=== PATIENT | male | born 1950 | race Caucasian/White ===

== ENCOUNTER 2019-02-11 12:29 | Outpatient (REF) | payer MEDICARE, BC, SELFPAY ==
[2019-02-11 21:18] LABS: ALT 22 U/L (16-63); AST 18 U/L (15-37); Albumin 3.8 g/dL (3.4-5.0); Alkaline Phosphatase 163 U/L (46-116); BUN 12 mg/dL (7-18); Bilirubin, Total 0.4 mg/dL (0.2-1.0); CREATININE 1.14 mg/dL (0.70-1.30); Calcium 8.9 mg/dL (8.5-10.1); Chloride 105 mmol/L (98-107); Glucose 108 mg/dL (70-100); Potassium 4.7 mmol/L (3.5-5.1); Sodium 141 mmol/L (136-145); Total Protein 6.7 g/dL (6.4-8.2)
[2019-02-13 09:56] LABS: PSA, Screening 0.7 ng/ml (0-4.5)
== END 2019-02-11 12:49 ==
LOC: NCHCN 12:29
PROVIDERS: PCP Family Medicine; Visit Provider Family Medicine
DX: Z00.00 Encounter for general adult medical examination without abnormal findings (principal); I10 Essential (primary) hypertension; N40.0 Benign prostatic hyperplasia without lower urinary tract symptoms; Z12.5 Encounter for screening for malignant neoplasm of prostate
CPT/HCPCS: 80053; 84153

== ENCOUNTER 2019-05-21 13:34 | Outpatient (REF) | payer MEDICARE, BC, SELFPAY ==
[2019-05-21 22:38] LABS: Abs Immature Grans 0.02 k/cumm (0.0-0.09); Absolute Basophil Count 0.13 k/cumm (0.0-0.2); Absolute Eosinophil Count 0.44 k/cumm (0.0-0.7); Absolute Lymphocyte Count 1.61 k/cumm (1.2-3.4); Absolute Monocyte Count 0.86 k/cumm (0.11-0.7); Absolute Neutrophil Count 5.29 k/cumm (1.2-6.7); Basophils % 1.6; Eosinophils % 5.3; HCT 49.3 % (40.0-50.0); HGB 16.2 g/dL (13.5-17.5); Immature Grans % 0.2 %; Lymphocytes % 19.3; Mean Corp. HGB Concentration 32.9 g/dL (32.0-36.0); Mean Corpuscular Volume 88.4 fL (80-95); Mean Platelet Volume 9.6 fL (8.0-11.0); Monocytes % 10.3; Neutrophils % 63.3; Platelet Count 335 x1000/uL (130-400); RBC 5.58 m/cumm (4.50-6.00); RBC Distribution Width 13.9 % (11.8-14.1); White Blood Cell Count 8.35 k/cumm (4.4-10.8)
[2019-05-21 23:14] LABS: ALT 23 U/L (16-63); AST 25 U/L (15-37); Albumin 3.7 g/dL (3.4-5.0); Alkaline Phosphatase 166 U/L (46-116); Anion Gap 9.3 mmol/L (3-11); BUN 10 mg/dL (7-18); Bilirubin, Total 0.4 mg/dL (0.2-1.0); CO2 26.7 mmol/L (21.0-32.0); CREATININE 0.98 mg/dL (0.70-1.30); Calculated LDL 98 mg/dL; Chloride 105 mmol/L (98-107); Cholesterol 171 mg/dL (<200); Glucose 86 mg/dL (74-106); HDL Cholesterol 60 mg/dL (40-60); Potassium 4.5 mmol/L (3.5-5.1); Sodium 141 mmol/L (136-145); Total Protein 6.6 g/dL (6.4-8.2); Triglyceride 68 mg/dL (<150)
== END 2019-05-21 13:54 ==
LOC: NCHCN 13:34
PROVIDERS: PCP Family Medicine; Visit Provider Physician Assistant Medical
DX: E78.5 Hyperlipidemia, unspecified (principal)
CPT/HCPCS: 80053; 80061; 85025

== ENCOUNTER 2019-05-27 09:02 | Outpatient (CLI) | payer MEDICARE, BC, SELFPAY ==
[2019-05-27 13:09] LABS: Prothrombin Time 10.4 sec (9.3-11.0)
== END 2019-05-27 09:22 ==
PROVIDERS: PCP Family Medicine; Visit Provider Physician Assistant Medical
DX: Z01.818 Encounter for other preprocedural examination (principal); Z98.890 Other specified postprocedural states
CPT/HCPCS: 36415; 85610

== ENCOUNTER 2019-10-07 12:08 | Outpatient (REF) | payer MEDICARE, BC, SELFPAY ==
[2019-10-07 19:31] LABS: HCT 50.1 % (40.0-50.0); HGB 16.7 g/dL (13.5-17.5); Mean Corp. HGB Concentration 33.3 g/dL (32.0-36.0); Mean Corpuscular Hemoglobin 28.8 pg (27.0-33.0); Mean Corpuscular Volume 86.5 fL (80-95); Mean Platelet Volume 9.5 fL (8.0-11.0); Platelet Count 321 x1000/uL (130-400); RBC 5.79 m/cumm (4.50-6.00); RBC Distribution Width 14.5 % (11.8-14.1); White Blood Cell Count 9.09 k/cumm (4.4-10.8)
[2019-10-07 19:46] LABS: Anion Gap 4.4 mmol/L (3-11); BUN 11 mg/dL (7-18); CO2 29.6 mmol/L (21.0-32.0); CREATININE 0.88 mg/dL (0.70-1.30); Calcium 8.9 mg/dL (8.5-10.1); Chloride 104 mmol/L (98-107); Glucose 94 mg/dL (74-106); Potassium 4.6 mmol/L (3.5-5.1); Sodium 138 mmol/L (136-145); TSH (W/Ref FT4) 0.86 uIU/mL (0.36-3.74); Vitamin B12 640 pg/mL (193-986)
== END 2019-10-07 12:28 ==
LOC: NCHCN 12:08
PROVIDERS: PCP Family Medicine; Visit Provider Family Medicine
DX: R53.83 Other fatigue (principal)
CPT/HCPCS: 80048; 85027; 82607; 84443

== ENCOUNTER 2020-10-04 12:33 | Emergency (ER) | payer MEDICARE, BC, SELFPAY ==
--- NOTE | 2020-10-04 12:44 | ED.GENADUL_ITS ---
Discharge Plan Disposition Patient Disposition: HOME Condition: Stable Discharge Details Clinical Impression: Acute exacerbation of chronic low back pain Primary Care Provider: Cathie Sue V ED Provider: Citlaly Terrazas Home Meds and New Rx's Prescriptions: New prednisone 20 mg tablet See Rx Instructions .ROUTE .COMPLEX Qty: 18 RF: 0 methocarbamol 500 mg tablet 500 mg PO Q6H PRN (Reason: muscle spasm) Qty: 14 RF: 0 Continued bupropion HCl [Wellbutrin SR] 150 MG tablet extended release 12 hr 150 mg PO BID RF: 0 trazodone 50 MG tablet 50 mg PO HS RF: 0 cetirizine [Zyrtec] 10 MG tablet 10 mg PO DAILY RF: 0 sertraline 50 MG tablet 50 mg PO BID RF: 0 simvastatin 40 MG tablet 40 mg PO HS RF: 0 fluticasone propionate 16 GM spray,suspension 2 spr IN DAILY RF: 0 aspirin [Aspir-81] 81 MG tablet,delayed release (DR/EC) 81 mg PO DAILY RF: 0 nitroglycerin [Nitrostat] 0.4 MG tablet, sublingual 0.4 mg PO DIRECTED PRNRF: 0 hydrocodone-acetaminophen 1 TAB tablet 1 tab PO Q6H PRN (Reason: Pain) Qty: 12 RF: 0 Discharge Instructions Instructions: Low Back Strain (ED) Additional Instructions: Alternate ice and heat to the affected area(s) several times daily for 20 minutes at a time. Alternate tylenol and motrin as needed and directed for pain. Take the oxycodone that you have at home as needed and directed for pain. Your prescriptions have been sent electronically to your pharmacy. Call the pharmacy to make sure your prescriptions ready before pickup. Take the prescriptions as directed. Call your primary care doctor to schedule follow-up appointment for reevaluation in the next week and for referral to orthopedics or spine specialists for further evaluation of your back pain. Return immediately to the emergency department if you develop any worsening or new concerning symptoms. Discharge Data Discharge Date/Time-TO BE ENTERED AT DEPARTURE: 10/04/20 16:05 Discharge Physician: Citlaly Terrazas Medical Decision Making [id number] -- 70-year-old male with a history of arthritis, coronary artery disease, hypertension, hyperlipidemia, tremors for which she has a brain stimulator for the past 5 years, history of lumbar fusion x2 with acute on chronic back pain presents with worsening back pain after pulling a trailer last week now with pain that radiates into both legs with numbness and weakness. Denies any other cauda equina symptoms. Vitals within normal limits. Patient appears uncomfortable but nontoxic. He is afebrile. Surgical scar site appears well-healed. No signs of cellulitis. Muscle strength equal bilaterally. Distal pulses equal bilaterally. Reflexes hypoactive throughout. No spasticity. History and presentation does not appear consistent with epidural abscess or cauda equina syndrome. MRI contraindicated secondary to his brain neurostimulator. Will give a dose of oxycodone, Valium, prednisone and reassess. He took diclofenac just prior to arrival. Will obtain a CT lumbar spine to rule out acute process. 1400 -- Imaging reviewed and notes IMPRESSION: 1. Status post fusion and laminectomy with vertically linked pedicle screws at L2 through S1 as described above. 2. Spondylosis and degenerative disc disease at T11-12, T12-L1, and L1-L2. 3. Simple cysts of the left kidney. 4. Large amount of retained stool within the colon. 5. Atherosclerosis. Patient reassessed and he states he feels much better. Patient appears more comfortable and has improved mobility. Patient feels good to go home. Will treat with oral steroids and methocarbamol. He states he has plenty of his oxycodone at home. Advised to follow up with the primary care doctor for re-evaluation and for referral to orthopedics or spine as disc herniation may be a possible diagnoses. Discussed with patient that MRI of lumbar spine is gold standard for diagnosing disc herniation and CT imaging may miss this finding. Usual and customary return precautions given prior to discharge. Medical Records Medical records reviewed: Yes I reviewed the patient's medical records. Imaging Data Radiologic Study: Radiologist's impression: CT Lumbar Spine Without Contrast Exam date and time: 10/04/2020 1:30 PM Age: 70 years old Clinical indication: Other: Lower back pain, b/l leg weak/numb; Prior surgery; Surgery date: 6+ months TECHNIQUE: Imaging protocol: Computed tomography images of the lumbar spine without contrast. Radiation optimization: All CT scans at this facility use at least one of these dose optimization techniques: automated exposure control; mA and/or kV adjustment per patient size (includes targeted exams where dose is matched to clinical indication); or iterative reconstruction. COMPARISON: LUMBAR SPINE RECONSTRUCTIONS 10/21/2017 2:20 PM FINDINGS: Vertebrae: No evidence of acute vertebral body fracture or subluxation. The patient is status post fusion with vertically linked pedicle screws at L2, L3, L4, L5, and S1. Laminectomy changes are also present at these levels. Bony fusion of vertebral bodies is seen at L3-L4, L4-L5, and L5-S1. In Discs/Spinal canal/Neural foramina: Spondylosis and degenerative disc disease with vacuum disc phenomenon is noted at T11-12, T12-L1, and L1-L2. No significant bony spinal canal or neural foraminal stenosis is noted. Kidneys and ureters: Small simple cysts of the left kidney are slightly noted. The largest cyst measures 2.0 cm in diameter. Stomach and bowel: There is a large amount of retained stool noted within the colon. Vasculature: Vascular calcifications are present. Soft tissues: Unremarkable. IMPRESSION: 1. Status post fusion and laminectomy with vertically linked pedicle screws at L2 through S1 as described above. 2. Spondylosis and degenerative disc disease at T11-12, T12-L1, and L1-L2. 3. Simple cysts of the left kidney. 4. Large amount of retained stool within the colon. 5. Atherosclerosis. HPI General Mode of arrival: ambulatory . Date/Time Provider Initiated Documentation: 10/04/20 12:44 . Limitations to Documentation: no limitations . Information obtained by: patient . HPI Narrative: Patient is a 70-year-old male with a history of chronic back pain with lumbar fusion x2 in addition to a history of tremors for which he has had a brain neurostimulator in place over the last 5 years presents for acute worsening of his back pain after pulling his tractor a few weeks ago. Patient states he has chronic lower back pain but since working on his tractor and sustaining an injury with pulling on the machine, he has had worsening lower back pain and now with pain radiating to both legs and associated with bilateral weakness and numbness. He denies fever, bowel or bladder incontinence, saddle anesthesia, abdominal pain or urinary symptoms. He states he took a dose of oxycodone and diclofenac today without relief. He states he had been on oxycodone chronically on a regular basis but this was stopped 3 months ago and he only takes it as needed for his chronic back pain. Related Data Home Medications Medication Instructions Recorded Confirmed aspirin [Aspir-81] 81 mg PO DAILY 05/06/17 05/31/21 bupropion HCl [Wellbutrin SR] 150 mg PO BID 09/09/16 10/04/20 cetirizine [Zyrtec] 10 mg PO DAILY 09/09/16 10/04/20 fluticasone propionate 2 spr IN DAILY 09/09/16 10/04/20 nitroglycerin [Nitrostat] 0.4 mg PO DIRECTED PRN 09/09/16 10/04/20 sertraline 50 mg PO BID 09/09/16 10/04/20 simvastatin 40 mg PO HS 09/09/16 10/04/20 trazodone 50 mg PO HS 09/09/16 10/04/20 hydrocodone-acetaminophen 1 tab PO Q6H PRN #12 tab 10/21/17 10/04/20 methocarbamol 500 mg PO Q6H PRN #14 tab 10/04/20 prednisone See Rx Instructions .ROUTE 10/04/20 .COMPLEX #18 tab Previous Rx's Medication Instructions Recorded hydrocodone-acetaminophen 1 tab PO Q6H PRN #12 tab 10/21/17 methocarbamol 500 mg PO Q6H PRN #14 tab 10/04/20 prednisone See Rx Instructions .ROUTE 10/04/20 .COMPLEX #18 tab Allergies Allergy/AdvReac Type Severity Reaction Status Date / Time seasonal AdvReac Mild watery Uncoded 10/04/20 13:42 eyes / runny nose Review of Systems All systems reviewed & are unremarkable except as noted in HPI and below Constitutional Constitutional: Reports as per HPI, Denies chills and Denies fever(s) Eyes Eyes: Denies blurry vision ENT Ears, Nose, Mouth, and Throat: Denies dizziness, Denies sore throat and Denies throat swelling Cardiovascular Cardiovascular: Denies chest pain and Denies dyspnea Respiratory Respiratory: Denies cough and Denies dyspnea Gastrointestinal Gastrointestinal: Denies abdominal pain, Denies diarrhea and Denies vomiting Genitourinary Genitourinary: Denies hematuria and Denies dysuria Musculoskeletal Musculoskeletal: Reports back pain and Denies numbness Integumentary/Breasts Skin/Breast: Denies lesions and Denies rash Neurologic Neurologic: Denies dizziness, Denies localized weakness and Denies numbness Allergic/Immunologic Allergic/Immunologic: Denies throat swelling PFSH Medical History (Updated 10/04/20 @ 15:39 by Citlaly Terarzas DO) Coronary artery disease High cholesterol HTN (hypertension) Social History Smoking/Tobacco Use Status: Current every day Smoking risk assessment performed?: Yes Alcohol Intake: current Alcohol Intake frequency: holidays/special occasions only Substance use type: does not use Do you feel safe at home: Yes Do you feel safe in your relationship?: Yes Exam Const General: cooperative, uncomfortable and no acute distress Orientation: alert, awake and oriented x3 HENMT Head: normal to inspection Face and sinus: normal facial exam Eyes General: appearance normal, both eyes and all related structures EOM: EOM intact bilaterally Neck Neck: normal visual inspection and No submandibular swelling Lymphatic: no lymphadenopathy noted Chest Chest: normal inspection of the chest and no tenderness Resp Effort & Inspection: normal respiratory effort and able to speak in complete sentences Auscultation: clear to auscultation bilaterally Cardio Rate: regular rate Rhythm: regular rhythm GI Inspection: normal to inspection Palpation: soft, not firm, not rigid and nontender Auscultation: normal bowel sounds Back/Spine/Pelvis Thoracic/Lumbar Spine: surgical scar(s) present, paraspinal tenderness and lumbar spinal tenderness Skin General skin exam: no rashes or lesions noted Neuro General: patient alert, patient awake, patient oriented x3, moves all extremities, no meningeal signs and no focal motor deficits Cognition: normal cognition Speech: speech normal Motor: muscle tone normal throughout and strength 5/5 throughout Sensory Exam: no sensory deficits noted DTR's: Rt Patellar: 0, Lt Patellar: 0, Rt Ankle: 1+ and Lt Ankle: 1+ Plantar Reflexes: Equivocal: bilateral (negative babinski b/l ) Other: B/L DP/PT pulses intact Extrem General: normal to inspection, full ROM, capillary refill normal, no calf tenderness bilaterally and no edema Psych Appearance: grossly normal Mental Status: mental status grossly normal Speech and Movement: speech and movement normal Affect: normal affect
[2020-10-04 12:46] VITALS: BP 154/90; PULSE 83; RESP 16; TEMP 36.5; O2SAT 96
--- NOTE | 2020-10-04 13:15 | DI.CT_ITS ---
Exam(s) CT LUMBAR SPINE WO EXAM: CT LUMBAR SPINE WO CLINICAL HISTORY: lower back pain, b/l leg weak/numb. TECHNIQUE: Imaging Protocol: Axial computed tomography images with coronal and sagittal reformatted images were created and reviewed COMPARISON: CT LUMBAR SPINE RECONSTRUCTIONS from 10/21/2017 CT THORACIC SPINE RECONSTRUCTIONS from 10/21/2017 FINDINGS: The patient is status post lumbar fusion with disc fusion from L3-4 through L5-S1. The patient is st atus post laminectomy from L2 through S1. Pedicle screws and posterior rods are seen extending from L2 through S1. Degenerative changes are seen in the lower thoracic spine in the upper lumbar spine. There is artifact from the patient's orthopedic hardware. Bones: The last intervertebral disc space is designated the L5/S1 level for the numbering purpose of this examination. The vertebral body heights are well maintained. There is a mild left convex curvat ure of the lumbar spine. No fracture is seen. No significant central spinal canal or neural foramina l stenosis is present. Soft Tissues: The visualized SI joints and sacrum are will maintained. The paraspinal soft tissues a re unremarkable. There again seen left renal cysts. IMPRESSION: 1. Status post lumbar fusion and laminectomies. 2. Degenerative changes seen in the lower thoracic and upper lumbar spine. 3. No acute fracture or subluxation. RADIATION DOSE DELIVERED: 613.01mGy.cm Total DLP 613.01mGy.cm Total DLP DATA REPOSITORY: All CT scans at this facility are submitted to the National Radiology Data Registry (NRDR) Dose Index Registry (DIR) with the [employer] (A[employer]). RADIATION OPTIMIZATION: All CT scans at this facility use at least one of these dose optimization te chniques: automated exposure control; mA and/or kV adjustment per patient size (includes targeted exa ms where dose is matched to clinical indication); or iterative reconstruction.
[2020-10-04] MEDS: diazePAM 5 MG TAB PO (13:37)
[2020-10-04] MEDS: oxyCODONE 10 MG TAB PO (13:37)
[2020-10-04] MEDS: predniSONE 20 MG TAB 60 MG PO (13:38)
--- NOTE | 2020-10-04 15:02 | DI.VRAD_ITS ---
PROCEDURE INFORMATION: Exam: CT Lumbar Spine Without Contrast Exam date and time: 10/04/2020 1:30 PM Age: 70 years old Clinical indication: Other: Lower back pain, b/l leg weak/numb; Prior surgery; Surgery date: 6+ months TECHNIQUE: Imaging protocol: Computed tomography images of the lumbar spine without contrast. Radiation optimization: All CT scans at this facility use at least one of these dose optimization techniques: automated exposure control; mA and/or kV adjustment per patient size (includes targeted exams where dose is matched to clinical indication); or iterative reconstruction. COMPARISON: LUMBAR SPINE RECONSTRUCTIONS 10/21/2017 2:20 PM FINDINGS: Vertebrae: No evidence of acute vertebral body fracture or subluxation. The patient is status post fusion with vertically linked pedicle screws at L2, L3, L4, L5, and S1. Laminectomy changes are also present at these levels. Bony fusion of vertebral bodies is seen at L3-L4, L4-L5, and L5-S1. In Discs/Spinal canal/Neural foramina: Spondylosis and degenerative disc disease with vacuum disc phenomenon is noted at T11-12, T12-L1, and L1-L2. No significant bony spinal canal or neural foraminal stenosis is noted. Kidneys and ureters: Small simple cysts of the left kidney are slightly noted. The largest cyst measures 2.0 cm in diameter. Stomach and bowel: There is a large amount of retained stool noted within the colon. Vasculature: Vascular calcifications are present. Soft tissues: Unremarkable. IMPRESSION: 1. Status post fusion and laminectomy with vertically linked pedicle screws at L2 through S1 as described above. 2. Spondylosis and degenerative disc disease at T11-12, T12-L1, and L1-L2. 3. Simple cysts of the left kidney. 4. Large amount of retained stool within the colon. 5. Atherosclerosis. Dictated and Authenticated by: Abhi Villarreal MD. Ordering:NANCY Boucher MD
[2020-10-04] MEDS: Methocarbamol 500 MG TAB 1000 MG PO (16:01)
== END 2020-10-04 16:05 | disposition home or self-care (01) ==
PROVIDERS: Emergency Provider Physician Assistant; PCP Family Medicine
DX: M54.5 Low back pain (principal); G89.29 Other chronic pain; X50.9XXA Other and unspecified overexertion or strenuous movements or postures, initial encounter
CPT/HCPCS: 99284; 72131; J7512

== ENCOUNTER 2020-11-25 13:59 | Outpatient (REF) | payer MEDICARE, BC, SELFPAY ==
[2020-11-25 18:55] LABS: HCT 50.9 % (40.0-50.0); HGB 16.5 g/dL (13.5-17.5); MCH 29.4 pg (27.0-33.0); MCHC 32.4 % (32.0-36.0); MCV 90.6 fL (80-95); Platelet Count 382 10^3/uL (130-400); RBC 5.62 10^6/uL (4.36-5.78); RDW 13.9 % (11.8-14.1); RDW-SD 46.7 fL; WBC 11.98 10^3/uL (4.4-10.8)
[2020-11-25 19:28] LABS: Hemoglobin A1C 5.9 % (<5.7)
[2020-11-25 19:30] LABS: ALT 58 U/L (16-63); AST 29 U/L (15-37); Albumin 3.9 g/dL (3.4-5.0); Alkaline Phosphatase 160 U/L (46-116); Anion Gap 9.3 mmol/L (3-11); BUN 15 mg/dL (7-18); Bilirubin, Total 0.3 mg/dL (0.2-1.0); CO2 27.7 mmol/L (21.0-32.0); CREATININE 0.9 mg/dL (0.70-1.30); Calcium 9.1 mg/dL (8.5-10.1); Chloride 105 mmol/L (98-107); Glucose 96 mg/dL (74-106); Magnesium 2.6 mg/dL (1.8-2.4); Potassium 4.6 mmol/L (3.5-5.1); Sodium 142 mmol/L (136-145); Total Protein 6.6 g/dL (6.4-8.2)
== END 2020-11-25 14:00 | disposition home or self-care (01) ==
LOC: NCHCN 13:59
PROVIDERS: PCP Family Medicine; Visit Provider Family Medicine
DX: Z01.818 Encounter for other preprocedural examination (principal); E78.5 Hyperlipidemia, unspecified; I10 Essential (primary) hypertension; R20.2 Paresthesia of skin
CPT/HCPCS: 80053; 85027; 83036; 83735; 84443

== ENCOUNTER 2020-11-30 09:31 | Outpatient (REF) | payer MEDICARE, BC, SELFPAY ==
[2020-11-30 19:56] LABS: Abs Immature Grans 0.06 10^3/uL (0.0-0.06); Absolute Basophil Count 0.14 10^3/uL (0.0-0.2); Absolute Eosinophil Count 0.38 10^3/uL (0.0-0.7); Absolute Lymphocyte Count 1.75 10^3/uL (1.2-3.4); Absolute Monocyte Count 0.93 10^3/uL (0.1-0.8); Absolute Neutrophil Count 9.82 10^3/uL (1.2-6.7); Basophils % 1.1; Eosinophils % 2.9; HCT 51.7 % (40.0-50.0); HGB 16.8 g/dL (13.5-17.5); Immature Grans % 0.5; Lymphocytes % 13.4; MCH 29.2 pg (27.0-33.0); MCHC 32.5 % (32.0-36.0); MCV 89.9 fL (80-95); MPV 8.9 fL (8.0-11.0); Monocytes % 7.1; Nucleated RBC 0 %; Platelet Count 369 10^3/uL (130-400); RBC 5.75 10^6/uL (4.36-5.78); RDW 13.7 % (11.8-14.1); RDW-SD 45.6 fL; WBC 13.09 10^3/uL (4.4-10.8)
== END 2020-11-30 09:32 | disposition home or self-care (01) ==
LOC: NCHCN 09:31
PROVIDERS: PCP Family Medicine; Visit Provider Family Medicine
DX: Z00.00 Encounter for general adult medical examination without abnormal findings (principal)
CPT/HCPCS: 85025

== ENCOUNTER 2021-03-06 15:19 | Emergency (ER) | payer MEDICARE, BC, SELFPAY ==
[2021-03-06 15:23] VITALS: BP 166/97; PULSE 99; RESP 18; TEMP 36.4; O2SAT 96
--- NOTE | 2021-03-06 15:30 | DI.CT_ITS ---
Exam(s) CT ABDOMEN PELVIS W EXAM: CT ABDOMEN PELVIS W CLINICAL HISTORY: rlq pain, eval for kidney stone/appe. TECHNIQUE: Imaging Protocol: Axial computed tomography images with coronal and sagittal reformatted images were created and reviewed CONTRAST MATERIAL: Intravenous: Omnipaque 100cc Oral: None COMPARISON: CT scan October 2017 FINDINGS: VISUALIZED LUNG BASES: No nodules nor pleural effusions evident. Mild increased markings in the post erior basal segment right lower lobe are chronic and unchanged from 2018. ABDOMEN: There is no ascites. LIVER: There are no focal hepatic lesions evident . GALLBLADDER/BILIARY: No obvious gallbladder pathology. CBD is not dilated. PANCREAS: No evidence of pancreatic mass nor dilatation of the pancreatic duct. SPLEEN: Spleen is not enlarged. No obvious intrasplenic lesions. Splenic and portal veins are paten t. ADRENALS: There are no significant adrenal masses. KIDNEYS:Benign cysts in both kidneys are again noted. No solid renal masses. No calculi. No hydron ephrosis. No hydroureter. No obvious abnormality in the urinary bladder.. ABDOMINAL AORTA: Abdominal aorta is calcified. Upper normal diameter. LYMPH NODES:There is no retroperitoneal nor paraaortic adenopathy. ABDOMINAL WALL: No evidence of significant anterior abdominal wall nor inguinal hernia. GI: Abundant fecal material in the colon but no evidence of bowel obstruction, free air, nor abscess. PELVIS: GI: Appendix not identified. No indirect evidence of acute appendicitisno evidence of sigmoid divert iculitis. LYMPH NODES: There is no intrapelvic nor inguinal adenopathy. REPRODUCTIVE: Prostate size upper normal URINARY BLADDER: No calculi nor obvious masses evident OSSEOUS: Multilevel fusion surgery again noted. Multilevel laminectomies. Surgeries have involve le vels T10 down to L4. The previously present intrapedicular screws in L5 and S1 have been removed and the hardware presently terminates at the L4 level where there is a unilateral right screw evident. The L5 vertebral body is fractured and, representing significant change. The screw channels at S1 le yoandy are noted but without significant osseous abnormality S1 level. There is an unchanged position i ntervertebral disc space device at L5-S1. IMPRESSION: 1. No acute soft tissue findings in the abdomen and pelvis. No ascites. 2. Compared to October 2017 there has been revision of the multilevel back surgery with removal of hardw are at L5 and S1 levels. There is presently posterior fusion and multilevel laminectomies of T10 thr ough L4. The posterior mike on the left side extends from T10 to L 3. The posterior mike on the right side extends from T10 to L4 where it is secured by a single right-sided intra pedicular screw which is in satisfactory position. There is an ununited fracture through L5 along the course of the previo usly present intra pedicular screws, also involving the pedicles. Posterior cortex of L5 is approxim ately 9 millimeters posterior to the posterior cortex of L4 on the right side. There is no tight can al stenosis. 3. Benign-appearing cysts in both kidneys are again noted. The largest is in the inferior pole of th e left kidney and measures 3.5 by 3.2 cm. There are no solid renal masses, calculi, or hydronephrosi s. 4. RADIATION DOSE DELIVERED: 550.98mGy.cm Total DLP DATA REPOSITORY: All CT scans at this facility are submitted to the National Radiology Data Registry (NRDR) Dose Index Registry (DIR) with the [employer] (ACR). RADIATION OPTIMIZATION: All CT scans at this facility use at least one of these dose optimization te chniques: automated exposure control; mA and/or kV adjustment per patient size (includes targeted exa ms where dose is matched to clinical indication); or iterative reconstruction.
[2021-03-06] MEDS: Normal Saline 1,000 ML 1000 ML IV (15:56)
[2021-03-06 15:58] LABS: Abs Immature Grans 0.03 10^3/uL (0.0-0.06); Absolute Basophil Count 0.12 10^3/uL (0.0-0.2); Absolute Monocyte Count 1.11 10^3/uL (0.1-0.8); Absolute Neutrophil Count 7.14 10^3/uL (1.2-6.7); Basophils % 1.2; Eosinophils % 1.9; HCT 43.1 % (40.0-50.0); Immature Grans % 0.3; Lymphocytes % 17.3; MCH 23.6 pg (27.0-33.0); MCHC 30.2 % (32.0-36.0); MCV 78.1 fL (80-95); MPV 8.4 fL (8.0-11.0); Monocytes % 10.7; Neutrophils % 68.6; Nucleated RBC 0 %; Platelet Count 505 10^3/uL (130-400); RBC 5.52 10^6/uL (4.36-5.78); RDW 14.9 % (11.8-14.1); RDW-SD 42.1 fL
[2021-03-06 15:59] LABS: ALT 35 U/L (16-63); AST 26 U/L (15-37); Albumin 4.3 g/dL (3.4-5.0); Alkaline Phosphatase 251 U/L (46-116); Anion Gap 9.8 mmol/L (3-11); BUN 9 mg/dL (7-18); Bilirubin, Total 0.3 mg/dL (0.2-1.0); CO2 28.2 mmol/L (21.0-32.0); CREATININE 0.8 mg/dL (0.70-1.30); Calcium 9.2 mg/dL (8.5-10.1); Chloride 103 mmol/L (98-107); Glucose 114 mg/dL (74-106); Potassium 4.1 mmol/L (3.5-5.1); Sodium 141 mmol/L (136-145); Total Protein 8.1 g/dL (6.4-8.2)
[2021-03-06] MEDS: Ondansetron 4 MG/2 ML VIAL IVP (16:13)
[2021-03-06 16:39] VITALS: BP 153/87; PULSE 92; RESP 16; TEMP 36.8; O2SAT 95
[2021-03-06] MEDS: Normal Saline - Diluent 50 ML VIAL IV (17:00)
--- NOTE | 2021-03-06 17:17 | DI.VRAD_ITS ---
PROCEDURE INFORMATION: Exam: CT Abdomen And Pelvis With Contrast Exam date and time: 03/06/2021 3:41 PM Age: 71 years old Clinical indication: Other: Rlq pain, eval for kidney stone/appe; Prior surgery; Surgery date: 6+ months TECHNIQUE: Imaging protocol: Computed tomography of the abdomen and pelvis with contrast. Contrast material: OMNIPAQUE 350; Contrast volume: 100 ml; Contrast route: INTRAVENOUS (IV); COMPARISON: CT CHEST ABD PELVIS WITH CONTRAST 10/21/2017 2:20 PM FINDINGS: Lungs: Minimal ground-glass change right lung base. Liver: Normal. No mass. Gallbladder and bile ducts: The gallbladder is partially contracted. Pancreas: Normal. No ductal dilation. Spleen: Normal. No splenomegaly. Adrenal glands: Normal. No mass. Kidneys and ureters: There are bilateral renal cysts. Renal perfusion symmetric. No hydronephrosis or hydroureter. Stomach and bowel: Unremarkable. No obstruction. No mucosal thickening. Appendix: The appendix is not definitely identified. There are no secondary signs for acute appendicitis. Intraperitoneal space: Unremarkable. No free air. No significant fluid collection. Vasculature: Moderate atherosclerotic change present in the vasculature. Lymph nodes: Unremarkable. No enlarged lymph nodes. Urinary bladder: Unremarkable as visualized. Reproductive: The scrotum is not completely imaged however it appears the patient may be status post left orchiectomy. Bones/joints: There is significant compression deformity at L5 with anterior fusion L4-L5. There is posterior fusion T10-L4 with multilevel laminectomy change. There appears to be an ununited nonacute fracture through L5 as well as the posterior elements, possible pseudarthrosis. Soft tissues: Unremarkable. Other findings: Moderate fecal retention pattern. IMPRESSION: Postsurgical changes. No definite acute abnormality seen to account for symptoms. Dictated and Authenticated by: Shefali Mehta MD. Ordering:IVAN Case MD
--- NOTE | 2021-03-06 17:20 | ED.GENADUL_ITS ---
Discharge Plan Disposition Patient Disposition: HOME Condition: Good Discharge Details Clinical Impression: Acute right flank pain Primary Care Provider: Cathie Sue V ED Provider: Manpreet Zepeda Home Meds and New Rx's Prescriptions: New lidocaine [Lidoderm] 1 PATCH patch 1 patch Topical Q24H Qty: 4 RF: 0 Continued bupropion HCl [Wellbutrin SR] 150 MG tablet extended release 12 hr 150 mg PO BID RF: 0 trazodone 50 MG tablet 50 mg PO HS RF: 0 cetirizine [Zyrtec] 10 MG tablet 10 mg PO DAILY RF: 0 sertraline 50 MG tablet 50 mg PO BID RF: 0 simvastatin 40 MG tablet 40 mg PO HS RF: 0 fluticasone propionate 16 GM spray,suspension 2 spr IN DAILY RF: 0 aspirin [Aspir-81] 81 MG tablet,delayed release (DR/EC) 81 mg PO DAILY RF: 0 nitroglycerin [Nitrostat] 0.4 MG tablet, sublingual 0.4 mg PO DIRECTED PRNRF: 0 methocarbamol 500 mg tablet 500 mg PO Q6H PRN (Reason: muscle spasm) Qty: 14 RF: 0 Discharge Instructions Instructions: Flank Pain (ED) Additional Instructions: At this time the CAT scan shows no evidence of kidney stone or other significant abnormality. I suspect the major component of your symptoms is contusion to your right ribs and subsequent spasm of the muscles. Please use the Lidoderm patches as needed. I will give you a prescription to take home and fill if you have improvement with the Lidoderm patch. You can use your Flexeril/cyclobenzaprine at home to help relax the muscles and to help sleep, alternatively you can use your home oxycodone for breakthrough pain if necessary. Continue to monitor your symptoms closely, and if you notice any significant changes return for reassessment. If you notice any worsening of your symptoms, or any new symptoms such as vomiting, diarrhea, fever, chills, shortness of breath, chest pain, numbness, weakness, or fainting , please return immediately to the emergency department for reevaluation. Please follow up with your primary care provider as soon as possible for reassessment and reevaluation. As always, it was a pleasure participating in your medical care today. Referrals: Cathie Sue MD [Primary Care Provider] - Discharge Data Discharge Date/Time-TO BE ENTERED AT DEPARTURE: 03/06/21 18:06 Medical Decision Making This 71-year-old male with a past medical history of notable thoracic and lumbar spine surgery this past summer, high cholesterol, coronary artery disease, hypertension, presents today for right flank pain. Patient states that over the last 2 days he was doing a significant amount of work with his family member putting in insulation, and he was on the ground leaning onto his right flank for an extended period of time. Since then he has had notable achiness and pain in the right flank going around towards the right side of his abdomen. He denies any numbness tingling or weakness. He denies any trauma. He does admit to nausea but denies vomiting. He denies any genital pain or discomfort. He denies any urinary complaints. He has no history of kidney stones. No other complaints this time. No other modifying factors. Physical exam demonstrates no abdominal tenderness, no significant flank or CVA tenderness. Genital exam unremarkable. Differential includes kidney stone, musculoskeletal spasm or strain, or mild contusion. No evidence of significant bruises noted though otherwise. We will get basic labs, urinalysis treat the patient's pain, monitor closely and reassess. 6:[address] scan shows no evidence of acute process per virtual radiology. Laboratory work-up is unremarkable. Hemoglobin minimally low, mild microcytic anemia. Electrolytes stable, renal function good, urinalysis negative for abnormality. On reassessment patient's pain is improved. No evidence of an acute surgical abdomen. This time patient feels stable for discharge. With no evidence of kidney stone, appendicitis or other life-threatening abnormality will give Lid oderm patch, and recommend that the patient uses home cyclobenzaprine or oxycodone if needed for pain. Discussed red flags which to return. Diagnosis is sinus at this time for contusion or musculoskeletal strain. I have extensively reviewed the treatment plan and discharge instructions with the patient and their family. I have addressed all patient concerns at this time. The patient and family was made aware of what symptoms to monitor for that would warrant a return to the emergency department. Discussed the plan with the patient and family, they demonstrate verbal understanding and agreement with our assessment and plan at this time. The documentation in this chart was dictated using Pythian dictation software. Please excuse any dictation errors. FINDINGS: Lungs: Minimal ground-glass change right lung base. Liver: Normal. No mass. Gallbladder and bile ducts: The gallbladder is partially contracted. Pancreas: Normal. No ductal dilation. Spleen: Normal. No splenomegaly. Adrenal glands: Normal. No mass. Kidneys and ureters: There are bilateral renal cysts. Renal perfusion symmetric. No hydronephrosis or hydroureter. Stomach and bowel: Unremarkable. No obstruction. No mucosal thickening. Appendix: The appendix is not definitely identified. There are no secondary signs for acute appendicitis. Intraperitoneal space: Unremarkable. No free air. No significant fluid collection. Vasculature: Moderate atherosclerotic change present in the vasculature. Lymph nodes: Unremarkable. No enlarged lymph nodes. Urinary bladder: Unremarkable as visualized. Reproductive: The scrotum is not completely imaged however it appears the patient may be status post left orchiectomy. Bones/joints: There is significant compression deformity at L5 with anterior fusion L4-L5. There is posterior fusion T10-L4 with multilevel laminectomy change. There appears to be an ununited nonacute fracture through L5 as well as the posterior elements, possible pseudarthrosis. Soft tissues: Unremarkable. Other findings: Moderate fecal retention pattern. IMPRESSION: Postsurgical changes. No definite acute abnormality seen to account for symptoms. Thank you for allowing us to participate in the care of your patient. Dictated and Authenticated by: Shefali Mehta MD 03/06/2021 5:16 PM Eastern Time ([place] & [place]) HPI General Date/Time Provider Initiated Documentation: 03/06/21 15:32 . HPI Narrative: This 71-year-old male with a past medical history of notable thoracic and lumbar spine surgery this past summer, high cholesterol, coronary artery disease, hypertension, presents today for right flank pain. Patient states that over the last 2 days he was doing a significant amount of work with his family member putting in insulation, and he was on the ground leaning onto his right flank for an extended period of time. Since then he has had notable achiness and pain in the right flank going around towards the right side of his abdomen. He denies any numbness tingling or weakness. He denies any trauma. He does admit to nausea but denies vomiting. He denies any genital pain or discomfort. He denies any urinary complaints. He has no history of kidney stones. No other complaints this time. No other modifying factors. Related Data Home Medications Medication Instructions Recorded Confirmed aspirin [Aspir-81] 81 mg PO DAILY 05/06/17 10/31/21 bupropion HCl [Wellbutrin SR] 150 mg PO BID 09/09/16 03/06/21 cetirizine [Zyrtec] 10 mg PO DAILY 09/09/16 10/04/20 fluticasone propionate 2 spr IN DAILY 09/09/16 10/04/20 nitroglycerin [Nitrostat] 0.4 mg PO DIRECTED PRN 09/09/16 10/04/20 sertraline 50 mg PO BID 09/09/16 03/06/21 simvastatin 40 mg PO HS 09/09/16 03/06/21 trazodone 50 mg PO HS 09/09/16 03/06/21 methocarbamol 500 mg PO Q6H PRN #14 tab 10/04/20 lidocaine [Lidoderm] 1 patch TOPICAL Q24H #4 ea 03/06/21 Previous Rx's Medication Instructions Recorded methocarbamol 500 mg PO Q6H PRN #14 tab 10/04/20 lidocaine [Lidoderm] 1 patch TOPICAL Q24H #4 ea 03/06/21 Allergies Allergy/AdvReac Type Severity Reaction Status Date / Time seasonal AdvReac Mild watery Uncoded 03/06/21 15:26 eyes / runny nose General Stated Complaint: FlankPain STEFANIA: 3 Review of Systems All systems reviewed & are unremarkable except as noted in HPI and below PFSH Medical History Coronary artery disease High cholesterol HTN (hypertension) Social History Smoking/Tobacco Use Status: Current every day Smoking risk assessment performed?: Yes Alcohol Intake: current Alcohol Intake frequency: holidays/special occasions only Substance use type: does not use Do you feel safe at home: Yes Do you feel safe in your relationship?: Yes Exam Narrative Exam Narrative: 1.Const: Well-nourished, Well-developed, appearing stated age 2.Eyes: PERRL, no conjunctival injection, and symmetrical lids. 3.ENT: Atraumatic external nose and ears. Moist MM. Neck: Symmetric, trachea midline, No thyromegaly. 4.CVS: +S1/S2, No murmurs or gallops. Peripheral pulses 2+ and equal in all extremities. Brisk capillary refill in all extremities. 5.RESP: Unlabored respiratory effort. Clear to auscultation bilaterally. No wheezes rales or rhonchi 6.GI: Soft, Nontender/Nondistended, No hepatosplenomegaly. No guarding or rebound. No pain to McBurney's point, negative Disla sign. No right-sided CVA tenderness. Genital exam demonstrates no scrotal or testicular tenderness, no penile tenderness. Normal cremasteric reflex. 7.MSK: Normocephalic/Atraumatic, Extremities w/o deformity or ttp No cyanosis or clubbing, Normal movement of all extremities 8.Skin: Warm, Dry. No rashes or lesions. Scar in the patient's spine is unremarkable, no redness or infection. 9.Neuro: ocular care technician II-XII grossly intact. Sensation grossly intact, no focal neurologic deficits. 10.Psych: (AAO) x3. Appropriate mood and affect Course Vital Signs Vital signs: Vital Signs Temperature 36.4 C L 03/06/21 15:23 Pulse 99 H 03/06/21 15:23 Respiratory Rate 18 03/06/21 15:23 Blood Pressure 166/97 H 03/06/21 15:23 Pulse Oximetry 96 03/06/21 15:23 Temperature 36.8 C 03/06/21 16:39 Temperature Source Oral 03/06/21 16:39 Pulse 92 H 03/06/21 16:39 Respiratory Rate 16 03/06/21 16:39 Respiratory Effort 03/06/21 16:40 Blood Pressure 153/87 H 03/06/21 16:39 Blood Pressure Position Sitting 03/06/21 15:23 Pulse Oximetry 95 03/06/21 16:39 Oxygen Delivery Method Room Air 03/06/21 16:39 Oxygen Flow Rate 0 03/06/21 16:39 Pain Level 6 03/06/21 16:13 Lab/Test Results Lab/Test Results: Laboratory Tests Range/Units 03/06/21 03/06/21 15:40 15:40 WBC (4.4-10.8) 10^3/uL 10.40 RBC (4.36-5.78) 10^6/uL 5.52 Hgb (13.5-17.5) g/dL 13.0 L Hct (40.0-50.0) % 43.1 MCV (80-95) fL 78.1 L MCH (27.0-33.0) pg 23.6 L MCHC (32.0-36.0) % 30.2 L RDW (11.8-14.1) % 14.9 H Plt Count (130-400) 10^3/uL 505 H MPV (8.0-11.0) fL 8.4 Immature Gran % 0.3 Neutrophils % 68.6 Lymphocytes % 17.3 Monocytes % 10.7 Eosinophils % 1.9 Basophils % 1.2 Nucleated RBC % % 0 Absolute Neutrophils (1.2-6.7) 10^3/uL 7.14 H Absolute Lymphocytes (1.2-3.4) 10^3/uL 1.80 Absolute Monocytes (0.1-0.8) 10^3/uL 1.11 H Absolute Eosinophils (0.0-0.7) 10^3/uL 0.20 Absolute Basophils (0.0-0.2) 10^3/uL 0.12 Sodium (136-145) mmol/L 141 Potassium (3.5-5.1) mmol/L 4.1 Chloride (98-107) mmol/L 103 Carbon Dioxide (21.0-32.0) mmol/L 28.2 Anion Gap (3-11) mmol/L 9.8 BUN (7-18) mg/dL 9 Creatinine (0.70-1.30) mg/dL 0.8 Estimated GFR/1.73 m2 (mL/min/1.73m2) >= 60.00 Glucose (74-106) mg/dL 114 H Calcium (8.5-10.1) mg/dL 9.2 Total Bilirubin (0.2-1.0) mg/dL 0.3 AST (15-37) U/L 26 ALT (16-63) U/L 35 Alkaline Phosphatase (46-116) U/L 251 H Total Protein (6.4-8.2) g/dL 8.1 Albumin (3.4-5.0) g/dL 4.3
[2021-03-06] MEDS: Lidocaine 5% Patch 1 PATCH TP (17:33)
[2021-03-06 17:42] LABS: Bilirubin Negative (Negative); Blood Negative (Negative); Clarity Clear (Clear); Glucose Negative (Negative); Ketones 15 mg/dL (Negative); Leukocyte Esterase Negative (Negative); Nitrite Negative (Negative); Specific Gravity 1.015 (1.005-1.025); Urobilinogen 0.2 EU/dL (Up TO 0.2)
[2021-03-06] MEDS: Ondansetron O.D.T. 4 MG TABEF, 3 TABS/BTL PO (18:04)
== END 2021-03-06 18:06 | disposition home or self-care (01) ==
PROVIDERS: Emergency Provider Student in an Organized Health Care Education/Training Program; PCP Family Medicine
DX: R10.9 Unspecified abdominal pain (principal); R11.0 Nausea
CPT/HCPCS: 80053; 96361; 96374; 96375; 99285; 74177; 81003; 85025; 99284; J2405

== ENCOUNTER 2021-03-18 09:29 | Outpatient (REF) | payer MEDICARE, BC, SELFPAY ==
[2021-03-18 14:37] LABS: HCT 40.4 % (40.0-50.0); MCH 23.2 pg (27.0-33.0); MCHC 29.7 % (32.0-36.0); MPV 8.9 fL (8.0-11.0); Platelet Count 546 10^3/uL (130-400); RBC 5.18 10^6/uL (4.36-5.78); RDW 15.9 % (11.8-14.1); RDW-SD 44.8 fL; WBC 10.63 10^3/uL (4.4-10.8)
[2021-03-18 15:49] LABS: Calculated LDL 94 mg/dL (<100); Cholesterol 172 mg/dL (<200); Ferritin 15 ng/mL (26-388); HDL Cholesterol 58 mg/dL (40-60); Triglyceride 101 mg/dL (<150)
[2021-03-18 22:45] LABS: PSA, Screening 0.9 ng/mL (0.0-6.5)
== END 2021-03-18 09:30 | disposition home or self-care (01) ==
LOC: NCHCN 09:29
PROVIDERS: PCP Family Medicine; Visit Provider Family Medicine
DX: E78.5 Hyperlipidemia, unspecified (principal); D64.9 Anemia, unspecified; Z00.00 Encounter for general adult medical examination without abnormal findings; Z12.5 Encounter for screening for malignant neoplasm of prostate
CPT/HCPCS: 80061; 84153; 85027; 82728

== ENCOUNTER 2021-09-29 10:41 | Outpatient (REF) | payer MEDICARE, BC, SELFPAY ==
[2021-09-29 15:03] LABS: Abs Immature Grans 0.06 10^3/uL (0.0-0.06); Absolute Basophil Count 0.16 10^3/uL (0.0-0.2); Absolute Eosinophil Count 0.67 10^3/uL (0.0-0.7); Absolute Lymphocyte Count 1.51 10^3/uL (1.2-3.4); Absolute Monocyte Count 0.74 10^3/uL (0.1-0.8); Absolute Neutrophil Count 6.08 10^3/uL (1.2-6.7); Basophils % 1.7; Eosinophils % 7.3; HGB 17.2 g/dL (13.5-17.5); Immature Grans % 0.7; Lymphocytes % 16.4; MCH 29.6 pg (27.0-33.0); MCHC 32.5 % (32.0-36.0); MCV 91 fL (80-95); MPV 8.7 fL (8.0-11.0); Neutrophils % 65.9; Platelet Count 318 10^3/uL (130-400); RBC 5.81 10^6/uL (4.36-5.78); RDW 13.8 % (11.8-14.1); RDW-SD 46.6 fL; WBC 9.22 10^3/uL (4.4-10.8)
[2021-09-29 15:26] LABS: ALT 31 U/L (16-63); AST 17 U/L (15-37); Albumin 3.9 g/dL (3.4-5.0); Alkaline Phosphatase 185 U/L (46-116); Anion Gap 5.4 mmol/L (3-11); BUN 15 mg/dL (7-18); Bilirubin, Total 0.3 mg/dL (0.2-1.0); CO2 31.6 mmol/L (21.0-32.0); Calcium 9.2 mg/dL (8.5-10.1); Chloride 105 mmol/L (98-107); Ferritin 69 ng/mL (26-388); Glucose 95 mg/dL (74-106); Potassium 4.6 mmol/L (3.5-5.1); Sodium 142 mmol/L (136-145); Total Protein 6.7 g/dL (6.4-8.2)
== END 2021-09-29 10:42 | disposition home or self-care (01) ==
LOC: NCHCN 10:41
PROVIDERS: PCP Family Medicine; Visit Provider Family Medicine
DX: D47.3 Essential (hemorrhagic) thrombocythemia (principal); D64.9 Anemia, unspecified; I10 Essential (primary) hypertension; E78.5 Hyperlipidemia, unspecified; Z98.890 Other specified postprocedural states
CPT/HCPCS: 80053; 82728; 85025

== ENCOUNTER 2021-12-23 01:16 | Outpatient (CLI) | payer MEDICARE, BC, SELFPAY ==
[2021-12-23 13:02] LABS: Abs Immature Grans 0.08 10^3/uL (0.0-0.06); Absolute Basophil Count 0.11 10^3/uL (0.0-0.2); Absolute Eosinophil Count 0.44 10^3/uL (0.0-0.7); Absolute Monocyte Count 0.98 10^3/uL (0.1-0.8); Absolute Neutrophil Count 9.26 10^3/uL (1.2-6.7); Basophils % 0.9; Eosinophils % 3.5; HCT 55.2 % (40.0-50.0); HGB 18.4 g/dL (13.5-17.5); Immature Grans % 0.6; Lymphocytes % 12.6; MCH 29.5 pg (27.0-33.0); MCHC 33.3 % (32.0-36.0); MCV 89 fL (80-95); MPV 8.4 fL (8.0-11.0); Monocytes % 7.9; Neutrophils % 74.5; Platelet Count 320 10^3/uL (130-400); RBC 6.23 10^6/uL (4.36-5.78); RDW 13.4 % (11.8-14.1); RDW-SD 43.5 fL; WBC 12.43 10^3/uL (4.4-10.8)
[2021-12-23 13:04] LABS: Absolute Lymphocyte Count 1.57 10^3/uL (1.2-3.4)
[2021-12-23 13:13] LABS: Prothrombin Time 10.4 sec (9.3-11.0)
[2021-12-23 13:18] LABS: Diff Comment Diff Reviewed; RBC Morphology Normal
[2021-12-23 13:31] LABS: Anion Gap 8.1 mmol/L (3-11); BUN 12 mg/dL (7-18); CO2 29.9 mmol/L (21.0-32.0); CREATININE 0.8 mg/dL (0.70-1.30); Calcium 9.1 mg/dL (8.5-10.1); Chloride 104 mmol/L (98-107); Glucose 90 mg/dL (74-106); Potassium 4.1 mmol/L (3.5-5.1); Sodium 142 mmol/L (136-145)
== END 2021-12-23 01:17 | disposition home or self-care (01) ==
PROVIDERS: PCP Family Medicine
DX: G25.0 Essential tremor (principal); Z86.79 Personal history of other diseases of the circulatory system
CPT/HCPCS: 36415; 80048; 85025; 85610

== ENCOUNTER 2022-04-12 03:46 | Outpatient (CLI) | payer MEDICARE, BC, SELFPAY ==
[2022-04-12 12:31] LABS: Abs Immature Grans 0.06 10^3/uL (0.0-0.06); Absolute Eosinophil Count 0.71 10^3/uL (0.0-0.7); Absolute Lymphocyte Count 1.49 10^3/uL (1.2-3.4); Absolute Monocyte Count 0.92 10^3/uL (0.1-0.8); Basophils % 1.2; Eosinophils % 5.5; HCT 51.4 % (40.0-50.0); Immature Grans % 0.5; Lymphocytes % 11.5; MCH 29.3 pg (27.0-33.0); MCHC 33.1 % (32.0-36.0); MCV 89 fL (80-95); MPV 8.6 fL (8.0-11.0); Monocytes % 7.1; Neutrophils % 74.2; Platelet Count 304 10^3/uL (130-400); RDW 13.8 % (11.8-14.1); WBC 12.97 10^3/uL (4.4-10.8)
[2022-04-12 12:33] LABS: Absolute Basophil Count 0.16 10^3/uL (0.0-0.2); Absolute Neutrophil Count 9.62 10^3/uL (1.2-6.7)
[2022-04-12 12:35] LABS: ESR 10 mm/hr (0-20)
[2022-04-12 13:24] LABS: ALT 34 U/L (16-63); AST 22 U/L (15-37); Albumin 3.8 g/dL (3.4-5.0); Alkaline Phosphatase 167 U/L (46-116); Bilirubin, Direct 0.1 mg/dL (0.0-0.2); Bilirubin, Total 0.3 mg/dL (0.2-1.0); C-Reactive Protein 0.31 mg/dL (0.0-0.3); Creatine Kinase 81 U/L (39-308); Ferritin 33 ng/mL (26-388); Total Protein 7.3 g/dL (6.4-8.2)
[2022-04-13 14:58] LABS: Erythropoietin 8.8 mIU/mL (2.6 - 18.5)
[2022-04-14 13:50] LABS: JAK2 Result see interpretation
== END 2022-04-12 03:47 | disposition home or self-care (01) ==
LOC: LBO 03:46
PROVIDERS: PCP Family Medicine; Visit Provider Family Medicine
DX: D47.3 Essential (hemorrhagic) thrombocythemia (principal); D75.1 Secondary polycythemia; D72.829 Elevated white blood cell count, unspecified
CPT/HCPCS: 36415; 80076; 82550; 82668; 85652; 81270; 82728; 85025; 86140

== ENCOUNTER 2023-04-10 18:30 | Outpatient (REF) | payer MEDICARE, BC, SELFPAY ==
[2023-04-10 15:31] LABS: HCT 54.5 % (40.0-50.0); HGB 18.2 g/dL (13.5-17.5); MCH 29.3 pg (27.0-33.0); MCHC 33.4 % (32.0-36.0); MCV 88 fL (80-95); MPV 8.8 fL (8.0-11.0); Platelet Count 348 10^3/uL (130-400); RBC 6.22 10^6/uL (4.36-5.78); RDW 13.7 % (11.8-14.1); RDW-SD 43.5 fL
[2023-04-10 16:11] LABS: Hemoglobin A1C 5.5 % (<5.7)
[2023-04-10 16:12] LABS: ALT 31 U/L (16-63); AST 23 U/L (15-37); Albumin 3.8 g/dL (3.4-5.0); Alkaline Phosphatase 183 U/L (46-116); Anion Gap 7.1 mmol/L (3-11); BUN 12 mg/dL (7-18); Bilirubin, Total 0.5 mg/dL (0.2-1.0); CO2 28.9 mmol/L (21.0-32.0); Calcium 9.3 mg/dL (8.5-10.1); Chloride 104 mmol/L (98-107); Estimated GFR 79.97 (mL/min/1.73m2); Glucose 102 mg/dL (74-106); Potassium 4.7 mmol/L (3.5-5.1); Sodium 140 mmol/L (136-145); Total Protein 6.8 g/dL (6.4-8.2)
[2023-04-10 23:21] LABS: PSA, Screening 1.5 ng/mL (<=6.5)
== END 2023-04-10 18:31 | disposition home or self-care (01) ==
LOC: NCHCN 18:30
PROVIDERS: PCP Family Medicine; Visit Provider Family Medicine
DX: Z00.00 Encounter for general adult medical examination without abnormal findings (principal); D72.829 Elevated white blood cell count, unspecified; I10 Essential (primary) hypertension
CPT/HCPCS: 80053; 84153; 85027; 83036

== ENCOUNTER → 2023-05-24 10:29 | Outpatient (BNVA) | payer MEDICARE, BC, SELFPAY | PROVIDERS: PCP Family Medicine; Referring Provider Family Medicine; Visit Provider Student in an Organized Health Care Education/Training Program | DX: R19.5 Other fecal abnormalities (principal) | CPT/HCPCS: 99213 ==

== ENCOUNTER 2023-06-06 08:54 | Day surgery (SDC) | payer MEDICARE, BC, SELFPAY ==
[2023-06-05 11:40] VITALS: BP 123/86; PULSE 54; RESP 18; TEMP 36.6; O2SAT 97
[2023-06-06 09:20] VITALS: BP 143/91; PULSE 104; RESP 18; TEMP 36.4; O2SAT 96
[2023-06-06] MEDS: Lactated Ringers 1,000 ML 80 ML IV (09:23)
--- NOTE | 2023-06-06 09:24 | W.PM.DSUDISC ---
Date of service: 06/06/23 Time of Service: 10:30 Discharge Plan Disposition Patient Disposition: Home Condition: Good Discharge Details Attending Provider: Marco Sargent Primary Care Provider: Cathie Sue V Home Meds and New Rx's Prescriptions: No Action lorazepam 1 mg tablet 1 mg PO DAILY PRN magnesium 200 mg tablet 400 mg PO DAILY venlafaxine 150 mg capsule,extended release 24hr 150 mg PO DAILY diltiazem HCl [DILT-XR] 120 mg capsule,ext.rel 24h degradable 120 mg PO DAILY trazodone 50 mg tablet 150 mg PO HS cholecalciferol (vitamin D3) 25 mcg (1,000 unit) capsule 25 mcg PO DAILY vitamin E (dl, acetate) 180 mg (400 unit) capsule 180 mg PO DAILY bupropion HCl [Wellbutrin SR] 150 MG tablet extended release 12 hr 150 mg PO BID cetirizine [Zyrtec] 10 MG tablet 10 mg PO DAILY sertraline 50 MG tablet 50 mg PO BID simvastatin 40 MG tablet 40 mg PO HS fluticasone propionate 16 GM spray,suspension 2 spr IN DAILY nitroglycerin [Nitrostat] 0.4 MG tablet, sublingual 0.4 mg PO DIRECTED PRN Discharge Instructions Additional Instructions: FINDINGS: Stand Alone Forms: Anesthesia Discharge Inst., Colonoscopy Post Instructions, Roderick Bocanegra (DSU) Activity:: Activity as Tolerated Diet:: As Tolerated
--- NOTE | 2023-06-06 09:25 | W.COLOREPORT ---
Date of service: 06/06/23 Time of Service: 10:20 Colonoscopy Report Procedure Description: PROCEDURES PERFORMED: 1. Diagnostic colonoscopy with cold forceps polypectomy PREOPERATIVE DIAGNOSIS: Positive Cologuard POSTOPERATIVE DIAGNOSIS: Mild diverticular disease, colon polyp SURGEON: Yi Sargent MD INDICATION for procedure: The patient is a 73-year-old man who has no symptoms, had a normal colonoscopy 10 years ago and has no family history of colon cancer or colon polyps. He took a Cologuard test as an alternative and it came back positive warranting colonoscopy. FINDINGS: The terminal ileum was normal. A small polyp was found in the distal sigmoid colon which is probably the reason the Cologuard test was positive. The polyp was removed with cold forceps technique but unfortunately the tissue was lost. Visual confirmation that it had been completely removed was obtained but no tissue was recovered. Mild diverticular changes are present in the sigmoid and left?colons. No obvious hemorrhoid disease. SURVEILLANCE interval/FOLLOW-UP: Under the assumption the polyp was likely a small tubular adenoma, repeat colonoscopy in 7-10 years SPECIMENS: No(no tissue was recovered) EBL: Minimal COMPLICATIONS: None QUALITY of prep: Excellent Procedure in detail: The patient gave written consent and was in agreement with the indications, the potential risks as well as the benefits of the procedure. They taken to the endoscopy suite and laid in the left lateral decubitus position. A timeout was performed and anesthesia was administered which was tolerated well. I started the procedure. Digital rectal and visual examination was performed and grossly within normal limits. A well-lubricated flexible colonoscope was then introduced and passed without any notable difficulty all the way to the cecum identified by the ileocecal valve and the appendiceal orifice. The terminal ileum was briefly intubated and looked normal. The scope was then slowly withdrawn with the above-noted findings. The patient tolerated the procedure well and was taken to the PACU in hemodynamically stable condition.
--- NOTE | 2023-06-06 10:13 | W.ANESPRE ---
General Info Date of Service Date Performed: 06/06/23 Height: 5 ft 4 in Weight: 67.4 kg Body Mass Index (BMI): 25.4 Surgical Procedure: Operation Date: 06/06/23 10:35 Proposed Procedure Side Surgeon p Colonoscopy Marco Sargent MD Actual Procedure Side Surgeon p Colonoscopy Not Applicable Marco Sargent MD Meds Allergies and Home Medications Allergies Allergy/AdvReac Type Severity Reaction Status Date / Time hydromorphone [From Dilaudid] Allergy Severe Verified 06/06/23 09:18 gabapentin Allergy Intermediate Verified 06/06/23 09:18 lisinopril Allergy Mild Verified 06/06/23 09:18 seasonal AdvReac Mild watery Uncoded 06/06/23 09:18 eyes / runny nose Home Medication Medication Instructions Recorded bupropion HCl 150 mg tablet,12 hr 150 mg PO BID 09/09/16 sustained-release (Wellbutrin SR) cetirizine 10 mg tablet (Zyrtec) 10 mg PO DAILY 09/09/16 fluticasone propionate 50 2 spr IN DAILY 09/09/16 mcg/actuation nasal spray,suspension nitroglycerin 0.4 mg sublingual 0.4 mg PO DIRECTED PRN 09/09/16 tablet (Nitrostat) sertraline 50 mg tablet 50 mg PO BID 09/09/16 simvastatin 40 mg tablet 40 mg PO HS 09/09/16 diltiazem HCl 120 mg 120 mg PO DAILY 04/11/21 capsule,extended release 24 hr, controlled (DILT-XR) lorazepam 1 mg tablet 1 mg PO DAILY PRN 04/11/21 magnesium 200 mg tablet 400 mg PO DAILY 04/11/21 venlafaxine 150 mg 150 mg PO DAILY 04/11/21 capsule,extended release 24 hr cholecalciferol (vitamin D3) 25 25 mcg PO DAILY 05/15/23 mcg (1,000 unit) capsule trazodone 50 mg tablet 150 mg PO HS 05/15/23 vitamin E (dl, acetate) 180 mg 180 mg PO DAILY 05/15/23 (400 unit) capsule Current Visit Medications: Current Medications Generic Name Dose Route Start Last Admin Trade Name Freq PRN Reason Stop Dose Admin Ringer's Solution 1,000 mls @ 80 mls/hr 06/06/23 06:00 06/06/23 09:23 IV 07/05/23 23:59 80 mls/hr INFUSION MIGUEL Administration IV Miscellaneous Supplies 1 each 06/06/23 06:00 Iv Access IV 07/05/23 23:59 DIRECTED MIGUEL Sodium Chloride 0 ml 06/06/23 06:00 Normal Saline Flush 10 Ml Syr IV 07/05/23 23:59 PRN PRN Sodium Chloride 0 ml 06/06/23 06:00 Normal Saline 10 Ml Vial IJ 07/05/23 23:59 DIRECTED PRN Sterile Water 0 ml 06/06/23 06:00 Water,Injection,Sterile 10 Ml Vial IJ 07/05/23 23:59 DIRECTED PRN PFSH Active Problems Active Problems: Problem Status Onset Code Positive colorectal cancer screening using Cologuard test ~04/26/23 R19.5 Anemia D64.9 Acute exacerbation of chronic low back pain M54.5, G89.29 Acute right flank pain R10.9 Medical History Medical History Lumbosacral radiculopathy Rhinitis, chronic History of tobacco abuse Dyspnea Anxiety and depression BPH (benign prostatic hyperplasia) Generalized arthritis Erectile dysfunction Raynauds phenomenon Tremor, essential Unintentional weight loss Paresthesia of bilateral legs Fatigue Ataxia Dysphagia Peripheral neuropathy Insomnia Coronary artery disease High cholesterol HTN (hypertension) Surgical History Surgical History History of colonoscopy S/P deep brain stimulator placement Tobacco Smoking/Tobacco Use Status: Current every day Tobacco Type: cigars Alcohol Alcohol Intake: current Alcohol intake frequency: holidays/special occasions only Substance Use Substance use: Never Substance use type: does not use Vital Signs and Lab Results Vital Signs Most Recent Vital Signs in EMR: Most Recent Vital Signs Temp Pulse Resp BP Pulse Ox 36.4 C L 104 H 18 143/91 H 96 06/06/23 09:20 06/06/23 09:20 06/06/23 09:20 06/06/23 09:20 06/06/23 09:20 Lab Results Blood Type / Crossmatch: No Data to Display Complete Blood Count: No Data to Display Complete Metabolic Panel: No Data to Display Liver Function Panel: No Data to Display Coagulation Panel: No Data to Display Cardiac Panel: No Data to Display Arterial Blood Gas: No Data to Display Venous Blood Gas: No Data to Display Pancreas Panel: No Data to Display Thyroid Panel: No Data to Display Infectious Disease: No Data to Display Blood Cultures: No Data to Display Toxicology Panel: No Data to Display Anesthesia Assessment and Plan Anesthesia History Personal History: No History of Anesthesia Complications Family History: No Family History of Anesthesia Complications Exercise Tolerance Exercise Tolerance: Metabolic Equivalents>4 Pertinent Negatives Pertinent Negatives: No Symptoms of GERD and Other (Deep Brain Stimulator) Cardiac & Pulmonary Exam Cardiac Exam: Normal S1/S2 Heart Sounds Pulmonary Exam: Clear Bilateral Breath Sounds Implantable Cardiac Device Does patient have a Pacemaker or an ICD?: No Airway Exam Known Difficult Airway: No Mallampati Class: 2 Mouth Opening: Normal (> 3cm) Thyromental Distance: Greater than 3 cm Neck Range of Motion: Full ROM Neck Circumference: Normal Teeth Condition: Removable Dentures/Plates Upper and Removable Dentures/Plates Lower ASA Classification ASA Score: ASA 3 Emergency Case?: No NPO Status NPO Status: NPO Clears >2 hours, Solids >8 hours Anesthesia Plan Resuscitation Status: Full Code Anesthesia Technique: General Anesthesia Airway Planned: Endotracheal Tube Monitors Used: Standard Monitors
[2023-06-06 10:17] VITALS: BMI 25.4
[2023-06-06 11:08] VITALS: BP 136/84; PULSE 76; RESP 18; TEMP 36.4; O2SAT 96
[2023-06-06 11:18] VITALS: BP 130/103; PULSE 65; RESP 18; TEMP 36.4; O2SAT 97
[2023-06-06 11:33] VITALS: BP 138/82; PULSE 72; RESP 16; TEMP 36.4; O2SAT 97
--- NOTE | 2023-06-06 12:06 | W.PM.DSUDISC ---
Date of service: 06/06/23 Time of Service: 12:06 Discharge Plan Disposition Patient Disposition: Home Condition: Good Discharge Details Attending Provider: Marco Sargent Primary Care Provider: Cathie Sue V Home Meds and New Rx's Prescriptions: No Action lorazepam 1 mg tablet 1 mg PO DAILY PRN magnesium 200 mg tablet 400 mg PO DAILY venlafaxine 150 mg capsule,extended release 24hr 150 mg PO DAILY diltiazem HCl [DILT-XR] 120 mg capsule,ext.rel 24h degradable 120 mg PO DAILY trazodone 50 mg tablet 150 mg PO HS cholecalciferol (vitamin D3) 25 mcg (1,000 unit) capsule 25 mcg PO DAILY vitamin E (dl, acetate) 180 mg (400 unit) capsule 180 mg PO DAILY bupropion HCl [Wellbutrin SR] 150 MG tablet extended release 12 hr 150 mg PO BID cetirizine [Zyrtec] 10 MG tablet 10 mg PO DAILY sertraline 50 MG tablet 50 mg PO BID simvastatin 40 MG tablet 40 mg PO HS fluticasone propionate 16 GM spray,suspension 2 spr IN DAILY nitroglycerin [Nitrostat] 0.4 MG tablet, sublingual 0.4 mg PO DIRECTED PRN Discharge Instructions Additional Instructions: FINDINGS: A small polyp was found today. This may have been the reason that you are Cologuard test was positive. It is nothing to worry about we completely removed it. Mild diverticular changes were seen today. This is extremely common, benign and nothing needs to be done about it. Most likely you will need to repeat another colonoscopy in 7 to 10 years. Stand Alone Forms: Anesthesia Discharge Inst., Colonoscopy Post Instructions, Roderick Bocanegra (DSU) Activity:: Activity as Tolerated Diet:: As Tolerated
--- NOTE | 2023-06-06 13:24 | W.ANESPOSTOP ---
Postoperative Evaluation Date, Time and Location Date Performed: 06/06/23 Time Performed: 11:10 Patient Location: Day Surgery Unit Vital Signs Most Recent Imported Vital Signs: Most Recent Vital Signs Temp Pulse Resp BP Pulse Ox 36.4 C L 72 16 138/82 97 06/06/23 11:33 06/06/23 11:33 06/06/23 11:33 06/06/23 11:33 06/06/23 11:33 Pain Score Most Recent Pain Score: Most Recent Pain Score Pain Level 0 06/06/23 11:33 Assessment Mental Status: Awake (Alert & Oriented to Patient Baseline) Airway and Respiratory Function: Patent airway with normal (patient baseline) respiratory exam Cardiovascular Function: Hemodynamically Stable Hydration Status: Adequately Hydrated Nausea & Vomiting: No Nausea or Vomiting Pain: Pt. Denies Any Pain Peripheral Nerve Block: Patient did not receive a nerve block
== END 2023-06-06 12:13 | disposition home or self-care (01) ==
LOC: SUR 08:54
PROVIDERS: PCP Family Medicine; Visit Provider Student in an Organized Health Care Education/Training Program
PROC: 0DJD8ZZ Inspection of Lower Intestinal Tract, Via Natural or Artificial Opening Endoscopic (ICD-10-PCS; CPT 45378; principal; 2023-06-06 10:30)
DX: Z12.11 Encounter for screening for malignant neoplasm of colon (principal); K63.5 Polyp of colon; R19.5 Other fecal abnormalities; D64.9 Anemia, unspecified; K57.30 Diverticulosis of large intestine without perforation or abscess without bleeding
CPT/HCPCS: 45380; 00123; J2704

== ENCOUNTER 2024-04-15 09:18 | Outpatient (REF) | payer MEDICARE, BC, SELFPAY ==
[2024-04-15 14:57] LABS: HCT 53.9 % (40.0-50.0); HGB 17.9 g/dL (13.5-17.5); MCH 29.2 pg (27.0-33.0); MCHC 33.2 % (32.0-36.0); MCV 88 fL (80-95); MPV 8.8 fL (8.0-11.0); Platelet Count 317 10^3/uL (130-400); RBC 6.12 10^6/uL (4.36-5.78); RDW 13.7 % (11.8-14.1); RDW-SD 44.1 fL; WBC 9.89 10^3/uL (4.4-10.8)
[2024-04-15 15:36] LABS: ALT 29 U/L (16-63); AST 22 U/L (15-37); Albumin 3.8 g/dL (3.4-5.0); Alkaline Phosphatase 180 U/L (46-116); Anion Gap 8.1 mmol/L (3-11); BUN 17 mg/dL (7-18); CO2 29.9 mmol/L (21.0-32.0); Calcium 9.2 mg/dL (8.5-10.1); Chloride 108 mmol/L (98-107); Estimated GFR 79.47 (mL/min/1.73m2); Glucose 109 mg/dL (74-106); Potassium 4.1 mmol/L (3.5-5.1); Sodium 146 mmol/L (136-145); Total Protein 6.7 g/dL (6.4-8.2)
== END 2024-04-15 09:19 | disposition home or self-care (01) ==
LOC: NCHCN 09:18
PROVIDERS: PCP Family Medicine; Visit Provider Family Medicine
DX: Z00.00 Encounter for general adult medical examination without abnormal findings (principal)
CPT/HCPCS: 80053; 85027

== ENCOUNTER 2024-10-16 12:58 | Emergency (ER) | payer MEDICARE, BC, SELFPAY ==
[2024-10-16 13:01] VITALS: BP 141/85; PULSE 90; RESP 18; TEMP 36.7; O2SAT 96
--- NOTE | 2024-10-16 13:15 | DI.RAD_ITS ---
Exam(s) XR HAND LT COMPLETE EXAM: XR HAND LT COMPLETE CLINICAL HISTORY: puncture wound 3rd digit. TECHNIQUE: 2D digital imaging was performed. COMPARISON: No exams were available for comparison FINDINGS: 3 views No evidence of acute fracture nor dislocation or abnormal soft tissue calcifications. There is no gas in soft tissues. No radiopaque foreign bodies over the 3rd finger. There is a subcutaneous sub mm foreign body in the mid aspect of the thumb. There are mild-moderate degenerative changes in the in terphalangeal joints. There are no erosions. Also advanced degenerative changes at the 1st carpometacarpal joint and more proximally in the wrist at the articulation between the distal radius and lunate bones. There is also degenerative subarticular cysts at this level on the radial side of this art iculation. IMPRESSION: No significant findings in the region of the 3rd finger. Incidental note of a tiny radiopaque foreign body in the soft tissues of the thumb. No osteomyelitis. Degenerative changes in the wrist, as described above. DATA REPOSITORY: RADIATION DOSE DELIVERED:
[2024-10-16] MEDS: Cephalexin 500 MG CAP PO (13:33)
[2024-10-16 14:11] VITALS: BP 131/82; PULSE 82; TEMP 36.6; O2SAT 98
[2024-10-16 14:33] VITALS: BP 131/82; PULSE 82; RESP 18; TEMP 36.6; O2SAT 98
--- NOTE | 2024-10-16 15:53 | W.ED.GENAD ---
Discharge Plan Disposition Patient Disposition: Home Condition: Stable Discharge Details Clinical Impression: Puncture wound of hand Primary Care Provider: Catihe Sue V ED Provider: Rose Dos Santos Home Meds and New Rx's Prescriptions: New cephalexin 500 mg tablet 500 mg PO Q6H 7 Days Qty: 28 0RF Continued lorazepam 1 mg tablet 1 mg PO DAILY PRN magnesium 200 mg tablet 400 mg PO DAILY venlafaxine 150 mg capsule,extended release 24hr 150 mg PO DAILY diltiazem HCl [DILT-XR] 120 mg capsule,ext.rel 24h degradable 120 mg PO DAILY trazodone 50 mg tablet 150 mg PO HS cholecalciferol (vitamin D3) 25 mcg (1,000 unit) capsule 25 mcg PO DAILY vitamin E (dl, acetate) 180 mg (400 unit) capsule 180 mg PO DAILY bupropion HCl [Wellbutrin SR] 150 MG tablet extended release 12 hr 150 mg PO BID cetirizine [Zyrtec] 10 MG tablet 10 mg PO DAILY sertraline 50 MG tablet 50 mg PO BID simvastatin 40 MG tablet 40 mg PO HS fluticasone propionate 16 GM spray,suspension 2 spr IN DAILY nitroglycerin [Nitrostat] 0.4 MG tablet, sublingual 0.4 mg PO DIRECTED PRN Discharge Instructions Instructions: Taking care of cuts, scrapes, and puncture wounds Additional Instructions: take antibiotic daily yogurt daily while taking antibiotic wash with soap and water daily (you may leave this dressing on for 48 hours as long as it stays dry return with spreading redness, fever, worsening pain recheck with Dr Graf on Sunday Referrals: Cathie Sue MD [Primary Care Provider, Medicine] Discharge Data Discharge Date/Time-TO BE ENTERED AT DEPARTURE: 10/16/24 14:33 HPI General Date/Time Provider Initiated Documentation: 10/16/24 13:13. HPI Narrative: 74-year-old male presenting with wound to left hand which occurred yesterday. He had a puncture wound removed. It was worse today which is why he presents. He states tetanus is to date denies finger sensation change. Normal assessment. Related Data Home Medications ?Medication ?Instructions ?Recorded ?Confirmed bupropion HCl 150 mg tablet,12 hr 150 mg PO BID 09/09/16 10/16/24 sustained-release (Wellbutrin SR) cetirizine 10 mg tablet (Zyrtec) 10 mg PO DAILY 09/09/16 10/16/24 fluticasone propionate 50 2 spr IN DAILY 09/09/16 10/16/24 mcg/actuation nasal spray,suspension nitroglycerin 0.4 mg sublingual 0.4 mg PO DIRECTED PRN 09/09/16 10/16/24 tablet (Nitrostat) sertraline 50 mg tablet 50 mg PO BID 09/09/16 10/16/24 simvastatin 40 mg tablet 40 mg PO HS 09/09/16 10/16/24 diltiazem HCl 120 mg 120 mg PO DAILY 04/11/21 10/16/24 capsule,extended release 24 hr, controlled (DILT-XR) lorazepam 1 mg tablet 1 mg PO DAILY PRN 04/11/21 10/16/24 magnesium 200 mg tablet 400 mg PO DAILY 04/11/21 10/16/24 venlafaxine 150 mg 150 mg PO DAILY 04/11/21 10/16/24 capsule,extended release 24 hr cholecalciferol (vitamin D3) 25 25 mcg PO DAILY 05/15/23 10/16/24 mcg (1,000 unit) capsule trazodone 50 mg tablet 150 mg PO HS 05/15/23 10/16/24 vitamin E (dl, acetate) 180 mg 180 mg PO DAILY 05/15/23 10/16/24 (400 unit) capsule cephalexin 500 mg tablet 500 mg PO Q6H 7 days #28 tabs 10/16/24 Previous Rx's ?Medication ?Instructions ?Recorded cephalexin 500 mg tablet 500 mg PO Q6H 7 days #28 tabs 10/16/24 Allergies Allergy/AdvReac Type Severity Reaction Status Date / Time hydromorphone (From Dilaudid) Allergy Severe Agitation Verified 10/16/24 13:05 gabapentin Allergy Intermediate Agitation Verified 10/16/24 13:05 lisinopril Allergy Mild Agitation Verified 10/16/24 13:05 seasonal AdvReac Mild watery Uncoded 10/16/24 13:05 eyes / runny nose General Stated Complaint: Laceration STEFANIA: 4 Exam Narrative Exam Narrative: Alert and oriented male in no acute distress tremor at baseline, puncture wound noted to the dorsal aspect of his third digit over the MCP which extends to the palmar aspect of range of motion is intact mildly diminished sensation to the dorsal aspect, no evidence of secondary infection Course Vital Signs Vital signs: Vital Signs Temperature 36.7 C 10/16/24 13:01 Pulse 90 10/16/24 13:01 Respiratory Rate 18 10/16/24 13:01 Blood Pressure 141/85 H 10/16/24 13:01 Pulse Oximetry 96 10/16/24 13:01 Temperature 36.6 C 10/16/24 14:33 Temperature Source Tympanic 10/16/24 14:11 Pulse 82 10/16/24 14:33 Respiratory Rate 18 10/16/24 14:33 Blood Pressure 131/82 10/16/24 14:33 Blood Pressure Mean 98 10/16/24 14:11 Pulse Oximetry 98 10/16/24 14:33 Oxygen Delivery Method Room Air 10/16/24 14:11 Oxygen Flow Rate 0 10/16/24 14:11 Pain Level 3 10/16/24 14:11 Medical Decision Making Patient presenting with intermittent left hand, wound cleansed copiously x-ray per radiology interpretation and my review does not show evidence of acute abnormality Patient was placed on Keflex out of risk for infection and digit was immobilized and dressed recheck on Sunday with PCP recommended return precautions reviewed and patient expressed understanding PFSH All Active Problems (Updated 10/16/24 @ 14:16 by MONICA Flynn) Puncture wound of hand (Acute) Positive colorectal cancer screening using Cologuard test (Acute ~04/26/23) Anemia (Chronic) Acute exacerbation of chronic low back pain (Acute) Acute right flank pain (Acute) Medical History (Updated 10/16/24 @ 14:16 by MONICA Flynn) Lumbosacral radiculopathy Rhinitis, chronic History of tobacco abuse Dyspnea Anxiety and depression BPH (benign prostatic hyperplasia) Generalized arthritis Erectile dysfunction Raynauds phenomenon Tremor, essential Unintentional weight loss Paresthesia of bilateral legs Fatigue Ataxia Dysphagia Peripheral neuropathy Insomnia Coronary artery disease High cholesterol HTN (hypertension) Surgical History (Updated 06/11/23 @ 11:49 by Delmi Kim) History of colonoscopy (~05/2023) biopsies S/P deep brain stimulator placement Social History Smoking/Tobacco Use Status: Current every day Tobacco Type: cigars Smoking risk assessment performed?: Yes Alcohol Intake: current Alcohol Intake frequency: holidays/special occasions only Drug use: Never Substance use type: does not use Housing: house Additional Social history: Unable to assess privately
== END 2024-10-16 14:33 | disposition home or self-care (01) ==
PROVIDERS: Emergency Provider Physician Assistant; PCP Family Medicine
DX: S61.432A Puncture wound without foreign body of left hand, initial encounter (principal); X58.XXXA Exposure to other specified factors, initial encounter
CPT/HCPCS: 99283 ×2; 73130

== ENCOUNTER 2024-11-24 11:40 | Emergency (ER) | payer MEDICARE, BC, SELFPAY ==
[2024-11-24] VITALS (48 sets, daily range): BP systolic 140–206; BP diastolic 83–127; PULSE 79–100; RESP 12–30; TEMP 36.8; O2SAT 86–99
--- NOTE | 2024-11-24 11:45 | DI.RAD_ITS ---
Exam(s) XR PELVIS AP XR FEMUR RT EXAM: XR PELVIS AP and XR femur RT CLINICAL HISTORY: Right hip pain, fall. TECHNIQUE: 2D digital imaging was performed.Eight images were obtained. FINDINGS: BONES: There is an acute comminuted fracture of the right femoral neck. The fracture is impacted. No bony destructive lesion is seen. JOINTS: No dislocation present. No joint space narrowing is present. Note is made of a right total knee arthroplasty. SOFT TISSUE: Vascular calcifications are present. IMPRESSION: Acute comminuted impacted right femoral neck fracture. DATA REPOSITORY: RADIATION DOSE DELIVERED:
--- NOTE | 2024-11-24 12:00 | RT.EKG_ITS ---
APPROVED REPORT Exam: Resting ECG Reason for Exam: Trauma Patient Location: E HR:96 bpm ECG Measurements Heart Rate 96 AXIS PA 167 P 77 QRSd 89 QRS 51 QT 375 T 230 QTc 475 Conclusion Poor quality data, interpretation may be affected Sinus rhythm...normal P axis, V-rate 60- 99 Repol abnrm suggests ischemia, diffuse leads...ST-T neg, ant/lat/inf No Occlusion AK
--- NOTE | 2024-11-24 12:02 | ED.GENADUL_ITS ---
Discharge Plan Discharge Details Chief Complaint: Fall/Non TraumaCriteria Primary Care Provider: Cathie Sue V ED Provider: Leena Bean Home Meds and New Rx's Prescriptions: No Action lorazepam 1 mg tablet 1 mg PO DAILY PRN magnesium 200 mg tablet 400 mg PO DAILY venlafaxine 150 mg capsule,extended release 24hr 150 mg PO DAILY diltiazem HCl [DILT-XR] 120 mg capsule,ext.rel 24h degradable 120 mg PO DAILY trazodone 50 mg tablet 150 mg PO HS cholecalciferol (vitamin D3) 25 mcg (1,000 unit) capsule 25 mcg PO DAILY vitamin E (dl, acetate) 180 mg (400 unit) capsule 180 mg PO DAILY bupropion HCl [Wellbutrin SR] 150 MG tablet extended release 12 hr 150 mg PO BID cetirizine [Zyrtec] 10 MG tablet 10 mg PO DAILY sertraline 50 MG tablet 50 mg PO BID simvastatin 40 MG tablet 40 mg PO HS fluticasone propionate 16 GM spray,suspension 2 spr IN DAILY nitroglycerin [Nitrostat] 0.4 MG tablet, sublingual 0.4 mg PO DIRECTED PRN HPI General Mode of arrival: EMS . Date/Time Provider Initiated Documentation: 11/24/24 11:47 . Limitations to Documentation: no limitations . Information obtained by: EMS . HPI Narrative: 74-year-old male presents to the ER via EMS with a chief complaint of a fall off a step ladder onto the right side. Complaining of severe right hip pain. Denies hitting his head no loss of consciousness denies any C-spine T-spine or L-spine tenderness. Denies any abdominal pain. Does have a past medical history hypertension high cholesterol coronary artery disease dyspnea anxiety depression BPH. Does take diltiazem on a normal basis. Related Data Home Medications ?Medication ?Instructions ?Recorded ?Confirmed bupropion HCl 150 mg tablet,12 hr 150 mg PO BID 10/16/24 sustained-release (Wellbutrin SR) cetirizine 10 mg tablet (Zyrtec) 10 mg PO DAILY 10/16/24 fluticasone propionate 50 2 spr IN DAILY 09/09/1610/05 2/25 mcg/actuation nasal spray,suspension nitroglycerin 0.4 mg sublingual 0.4 mg PO DIRECTED PRN 09/09/16 10/16/24 tablet (Nitrostat) sertraline 50 mg tablet 50 mg PO BID 09/09/16 simvastatin 40 mg tablet 40 mg PO HS 09/09/16 5 diltiazem HCl 120 mg 120 mg PO DAILY 04/11/2104/30 capsule,extended release 24 hr, controlled (DILT-XR) lorazepam 1 mg tablet 1 mg PO DAILY PRN 04/11/21 0 10/16/24 magnesium 200 mg tablet 400 mg PO DAILY 04/11/2104/30 venlafaxine 150 mg 150 mg PO DAILY 04/11/2104/30 capsule,extended release 24 hr cholecalciferol (vitamin D3) 25 25 mcg PO DAILY 10/16/24 mcg (1,000 unit) capsule trazodone 50 mg tablet 150 mg PO HS 05/15/23 vitamin E (dl, acetate) 180 mg 180 mg PO DAILY 4 10/16/24 (400 unit) capsule Allergies Allergy/AdvReac Type Severity Reaction Status Date / Time hydromorphone (From Dilaudid) Allergy Severe Agitation Verified 10/16/24 13:05 gabapentin Allergy Intermediate Agitation Verified 10/16/24 13:05 lisinopril Allergy Mild Agitation Verified 10/16/24 13:05 seasonal AdvReac Mild watery Uncoded 10/16/24 13:05 eyes / runny nose General Stated Complaint: Fall/Non TraumaCriteria STEFANIA: 3 Review of Systems All systems reviewed & are unremarkable except as noted in HPI and below Constitutional Constitutional: Reports as per HPI and Denies headache(s) ENT Ears, Nose, Mouth, and Throat: Denies headache(s) Cardiovascular Cardiovascular: Denies chest pain, Denies syncope and Denies radiating jaw, neck or arm pain Gastrointestinal Gastrointestinal: Denies abdominal pain Musculoskeletal Musculoskeletal: Reports as per HPI, Denies back pain and Reports arthralgias Neurologic Neurologic: Reports as per HPI, Denies confusion, Denies syncope, Denies headache(s), Denies localized weakness and Denies memory loss Psychiatric Psychiatric: Denies confusion and Denies memory loss Exam Narrative Exam Narrative: General: Well Developed, Awake and Alert, conversant. Skin: Warm and Dry HEENT: Head: No palpable deformities, Normocephalic Eyes: Pupils PERRLA, EOM's intact. No periorbital eccymosis or step off Ears: Canal patent. Tympanic membranes are clear . No baptiste's sign, no hemptympanum. Nose/Face: Atraumatic. Facial bones nontender to palpation and stable with manipulation. Mouth/Throat: No intraoral trauma. Teeth and mandible are intact. Neck: No midline tenderness, no step off, no deformity to palpation of C-spine. Trachea midline. Chest: No surface trauma. Nontender without crepitus or deformity. Lungs clear to ausculatation bilaterally. Heart: RRR, no rubs, murmurs or gallop. Abdomen: No abrasions, ecchymosis, or surface trauma. Nondistended. Nontender to palpation no guarding, rebound, or rigidity. Pelvis: Right hip pain, and a flexed position. C, T, L-spine: No crepitus no step-off with palpation Extremities: no surface trauma. Sensation intact. Peripheral pulses intact and equal. Neuro: ANO x4, GCS 15, cranial nerves II through XII intact. Motor and sensory exam nonfocal. Reflexes are symmetric. Course Vital Signs Vital signs: Vital Signs Temperature 36.8 C 11/24/24 11:43 Pulse 88 11/24/24 11:43 Respiratory Rate 18 11/24/24 11:43 Blood Pressure 192/104 H 11/24/24 11:43 Pulse Oximetry 99 11/24/24 11:43 Temperature 36.8 C 11/24/24 11:43 Temperature Source Oral 11/24/24 11:43 Pulse 88 11/24/24 11:43 Respiratory Rate 18 11/24/24 11:43 Blood Pressure 192/104 H 11/24/24 11:43 Blood Pressure Position Sitting 11/24/24 11:43 Pulse Oximetry 99 11/24/24 11:43 Oxygen Delivery Method Room Air 11/24/24 11:43 Oxygen Flow Rate 0 11/24/24 11:43 Pain Level 4 11/24/24 11:53 Medical Decision Making 74-year-old male presents to the ER via EMS with a chief complaint of a fall off a step ladder onto the right side. Complaining of severe right hip pain. Denies hitting his head no loss of consciousness denies any C-spine T-spine or L-spine tenderness. Denies any abdominal pain. Does have a past medical history hypertension high cholesterol coronary artery disease dyspnea anxiety depression BPH. Does take diltiazem on a normal basis. Patient is alert and oriented x 4, no obvious deformity however patient is keeping his right leg in a flexed position. No external rotation. Trauma labs and x-rays ordered including chest x-ray and hip pelvis and femur x-ray. Morphine Zofran IV and labs EKG . Spoke with hospitalist Dr. Terrell and Dr. Tian who is on-call for orthopedic surgery and in clinic. Dr. Mejias states that he does not do hip replacements which is what the patient would need done and would need to be transferred. I did notify Dr. Terrell. With discussion with the patient family they would prefer to be close to this area if possible we will contact [facility] to see if they have orthopedic surgery available and are willing to accept the patient will also talk with [facility]. 1549: Spoke with Dahlia Larson with [facility] ortho, they do not have OR time for Emergent surgeries. 1551: Call made to [facility] [place] will have images pushed. They report that they are at capacity at this time but will call me back for availability of Ortho. Care is to be handed off to oncoming provider MONICA Beltran pending transfer for right hip fracture. Discussed patient case in details with him he verbalized understanding. Medical Records Medical records reviewed: Yes I reviewed the patient's medical records. Imaging Data Radiologic Study: Imaging: X-Ray Radiologist's impression: EXAM: XR CHEST 1V IN DI DEPT CLINICAL HISTORY: Trauma, Fall TECHNIQUE: 2D digital imaging was performed of the chest. One image was obtained. An AP view was obtained. COMPARISON: CR CHEST 2 VIEWS PA,LAT from 07/22/2012 FINDINGS: MEDIASTINUM: Normal. HEART: Normal. PULMONARY VASCULATURE: Normal. LUNGS: There are no focal consolidating infiltrates. PLEURAL SPACE: No pleural effusion or pneumothorax. BONE:Within normal limits for the patient's age. Posterior spinal rods are seen in the lower thoracic and lumbar spine. OTHER FINDINGS:There is a battery pack overlying the left chest wall. The leads are directed cephalad in the left neck. IMPRESSION: No acute pulmonary findings. Radiologic Study #2: Imaging: X-Ray Radiologist's impression: EXAM: XR PELVIS AP and XR femur RT CLINICAL HISTORY: Right hip pain, fall. TECHNIQUE: 2D digital imaging was performed.Eight images were obtained. COMPARISON: CR LEFT HIP COMPLETE & AP PELVIS from 07/02/2014 FINDINGS: BONES: There is an acute comminuted fracture of the right femoral neck. The fracture is impacted. No bony destructive lesion is seen. JOINTS: No dislocation present. No joint space narrowing is present. Note is made of a right total knee arthroplasty. SOFT TISSUE: Vascular calcifications are present. IMPRESSION: Acute comminuted impacted right femoral neck fracture. Lab Data Lab results reviewed: Yes I reviewed the patient's lab results. Labs: Laboratory Tests Range/Units 11/24/24 11/24/24 12:04 12:13 WBC (4.4-10.8) 10^3/uL 12.71 H RBC (4.36-5.78) 10^6/uL 5.97 H Hgb (13.5-17.5) g/dL 17.4 Hct (40.0-50.0) % 51.7 H MCV (80-95) fL 87 MCH (27.0-33.0) pg 29.1 MCHC (32.0-36.0) % 33.7 RDW (11.8-14.1) % 13.5 Plt Count (130-400) 10^3/uL 259 MPV (8.0-11.0) fL 8.3 Immature Gran % % 0.6 Neutrophils % % 82.4 Lymphocytes % % 8.2 Monocytes % % 6.5 Eosinophils % % 1.4 Basophils % % 0.9 Nucleated RBC % (0.0-0.3) % 0.0 Absolute Neutrophils (1.2-6.7) 10^3/uL 10.47 H Absolute Lymphocytes (1.2-3.4) 10^3/uL 1.04 L Absolute Monocytes (0.1-0.8) 10^3/uL 0.83 H Absolute Eosinophils (0.0-0.7) 10^3/uL 0.18 Absolute Basophils (0.0-0.2) 10^3/uL 0.11 PT (9.1-11.1) sec 10.4 INR (0.9-1.1) 1.0 APTT (20.6-30.2) sec 25.9 Sodium (136-145) mmol/L 142 Potassium (3.5-5.1) mmol/L 4.0 Chloride (98-107) mmol/L 106 Carbon Dioxide (21.0-32.0) mmol/L 26.8 Anion Gap (3-11) mmol/L 9.2 BUN (7-18) mg/dL 15 Creatinine (0.70-1.30) mg/dL 0.8 Est GFR (CKD-EPI 2020) (mL/min/1.73m2) 93.45 Glucose (74-106) mg/dL 110 H Calcium (8.5-10.1) mg/dL 9.6 Magnesium (1.8-2.4) mg/dL 2.2 Total Bilirubin (0.2-1.0) mg/dL 0.4 AST (15-37) U/L 21 ALT (16-63) U/L 35 Alkaline Phosphatase (46-116) U/L 169 H Total Protein (6.4-8.2) g/dL 7.0 Albumin (3.4-5.0) g/dL 3.7 PFSH All Active Problems Positive colorectal cancer screening using Cologuard test (Acute ~04/26/23) Anemia (Chronic) Acute exacerbation of chronic low back pain (Acute) Acute right flank pain (Acute) Medical History Lumbosacral radiculopathy Rhinitis, chronic History of tobacco abuse Dyspnea Anxiety and depression BPH (benign prostatic hyperplasia) Generalized arthritis Erectile dysfunction Raynauds phenomenon Tremor, essential Unintentional weight loss Paresthesia of bilateral legs Fatigue Ataxia Dysphagia Peripheral neuropathy Insomnia Coronary artery disease High cholesterol HTN (hypertension) Surgical History History of colonoscopy (~05/2023) biopsies S/P deep brain stimulator placement Social History Smoking/Tobacco Use Status: Current every day Tobacco Type: cigars Smoking risk assessment performed?: Yes Alcohol Intake: current Alcohol Intake frequency: holidays/special occasions only Drug use: Never Substance use type: does not use Housing: house Do you feel safe at home: Yes Do you feel safe in your relationship?: Yes
[2024-11-24 12:10] LABS: Abs Immature Grans 0.08 10^3/uL (0.0-0.06); HCT 51.7 % (40.0-50.0); HGB 17.4 g/dL (13.5-17.5); Immature Grans % 0.6 %; MCH 29.1 pg (27.0-33.0); MCHC 33.7 % (32.0-36.0); MCV 87 fL (80-95); MPV 8.3 fL (8.0-11.0); Platelet Count 259 10^3/uL (130-400); RBC 5.97 10^6/uL (4.36-5.78); RDW 13.5 % (11.8-14.1); RDW-SD 43.1 fL; WBC 12.71 10^3/uL (4.4-10.8)
[2024-11-24] MEDS: Ondansetron 4 MG/2 ML VIAL IVP (12:17)
[2024-11-24] MEDS: fentaNYL 100 MCG/2 ML VIAL 50 MCG IVP ×2 (12:17→19:19)
[2024-11-24 12:43] LABS: ALT 35 U/L (16-63); AST 21 U/L (15-37); Albumin 3.7 g/dL (3.4-5.0); Alkaline Phosphatase 169 U/L (46-116); Anion Gap 9.2 mmol/L (3-11); BUN 15 mg/dL (7-18); Bilirubin, Total 0.4 mg/dL (0.2-1.0); CO2 26.8 mmol/L (21.0-32.0); Calcium 9.6 mg/dL (8.5-10.1); Chloride 106 mmol/L (98-107); Estimated GFR 93.45 (mL/min/1.73m2); Glucose 110 mg/dL (74-106); Magnesium 2.2 mg/dL (1.8-2.4); Potassium 4.0 mmol/L (3.5-5.1); Sodium 142 mmol/L (136-145); Total Protein 7.0 g/dL (6.4-8.2)
[2024-11-24 12:44] LABS: INR 1.0 (0.9-1.1); PTT Activated 25.9 sec (20.6-30.2); Prothrombin Time 10.4 sec (9.1-11.1)
[2024-11-24] MEDS: fentaNYL 100 MCG/2 ML VIAL 25 MCG IVP ×2 (13:00→14:40)
[2024-11-24] MEDS: ACETAMINOPHEN 1,000 MG/100 ML BAG 400 MG (14:42)
[2024-11-24 16:00] LABS: Glucose Negative (Negative)
[2024-11-24] MEDS: MORPHine 10 MG/ML VIAL 2 MG IVP ×2 (16:31→20:49)
--- NOTE | 2024-11-24 19:24 | W.EDPROG ---
Date of service: 11/24/24 Time of Service: 19:24 Medical Decision Making This dictation utilizes [id number] dictation software and may contain unedited grammatical errors. Patient seen in signout from Leena Bean NP, please see her complete note. Essentially this 74-year-old male was on a stepladder earlier today doing chores and took a fall, he has no other injury besides a comminuted intertrochanteric fracture of the right femoral neck which is surgical. Our orthopedist Dr. Foote that can perform this procedure is on vacation, [facility] has no capacity, [facility] was checked with at the behest of the family and they refused. [facility] could take the patient tomorrow, [facility] accepted the patient for ED to ED transfer for definitive care, patient agrees to this. Patients' medical history: Deep brain stimulator with essential tremor, history of tobacco use, BPH, bilateral leg paresthesias, fatigue, ataxia, coronary artery disease, hypertension, anemia. Family and social history: Lives independently with his , otherwise noncontributory, as relatively active at baseline. Pertinent exam findings / vital signs include patient is laying in the left recumbent position due to pain- NV intact in R foot, has exquisite tenderness to right hip, is resting comfortably on 2 L O2 by NC due to likely opiate hypoventilation for pain control. Differential / pathologies of concern include hip fracture. Diagnostic studies of: - Reviewed x-rays & labs as below, see prior providers note as well. - EKG shows significant artifact likely due to lead placement but otherwise sinus rhythm at 96 bpm with P waves followed by a narrow complex QRS with normal axis, no large Q waves, question T wave inversion V3, otherwise normal intervals - CBC without anemia - CMP unremarkable - UA without hematuria - XRs show comminuted fracture of R femoral neck, intratrochanteric ED Course/Assessment/Plan: Bed search ongoing at time of signout at 1600. [facility] has already refused, [facility] states no capacity around 1730, [facility] spoke with Dr. Martinez, who could take the patient but there are ERs over capacity and they cannot accept until tomorrow. I spoke with [facility] with Dr. Panda of orthopedics at 1852 who accepts the patient, [facility] connected me with Dr. DAVE of the ER at 1902 who accepts for ED to ED transport, patient received another dose of as needed 50 mcg of fentanyl prior to transfer and 2mg of morphine, transporting at basic level, Dr. Panda of orthopedics did recommend 1 shot of heparin later tonight and n.p.o. after midnight.. Findings not consistent with neurovascular compromise. Disposition of Closed comminuted intertrochanteric fracture of right femur. Patient verbalized understanding of the plan and return to ED criteria and engaged in shared decision making. Medical Records Medical records reviewed: Yes I reviewed the patient's medical records. Imaging Data Radiologic Study: Attestation: I personally reviewed and interpreted this imaging study as follows: Imaging: X-Ray Radiologist's impression: EXAM: XR PELVIS AP and XR femur RT CLINICAL HISTORY: Right hip pain, fall. TECHNIQUE: 2D digital imaging was performed.Eight images were obtained. FINDINGS: BONES: There is an acute comminuted fracture of the right femoral neck. The fracture is impacted. No bony destructive lesion is seen. JOINTS: No dislocation present. No joint space narrowing is present. Note is made of a right total knee arthroplasty. SOFT TISSUE: Vascular calcifications are present. IMPRESSION: Acute comminuted impacted right femoral neck fracture. Radiologic Study #2: Attestation: I personally reviewed and interpreted this imaging study as follows: Imaging: X-Ray Radiologist's impression: EXAM: XR CHEST 1V IN DI DEPT CLINICAL HISTORY: Trauma, Fall TECHNIQUE: 2D digital imaging was performed of the chest. One image was obtained. An AP view was obtained. COMPARISON: CR CHEST 2 VIEWS PA,LAT from 07/22/2012 FINDINGS: MEDIASTINUM: Normal. HEART: Normal. PULMONARY VASCULATURE: Normal. LUNGS: There are no focal consolidating infiltrates. PLEURAL SPACE: No pleural effusion or pneumothorax. BONE:Within normal limits for the patient's age. Posterior spinal rods are seen in the lower thoracic and lumbar spine. OTHER FINDINGS:There is a battery pack overlying the left chest wall. The leads are directed cephalad in the left neck. IMPRESSION: No acute pulmonary findings. Lab Data Lab results reviewed: Yes I reviewed the patient's lab results. Labs: Laboratory Tests Range/Units 11/24/24 11/24/24 11/24/24 12:04 12:13 15:40 WBC (4.4-10.8) 10^3/uL 12.71 H RBC (4.36-5.78) 10^6/uL 5.97 H Hgb (13.5-17.5) g/dL 17.4 Hct (40.0-50.0) % 51.7 H MCV (80-95) fL 87 MCH (27.0-33.0) pg 29.1 MCHC (32.0-36.0) % 33.7 RDW (11.8-14.1) % 13.5 Plt Count (130-400) 10^3/uL 259 MPV (8.0-11.0) fL 8.3 Immature Gran % % 0.6 Neutrophils % % 82.4 Lymphocytes % % 8.2 Monocytes % % 6.5 Eosinophils % % 1.4 Basophils % % 0.9 Nucleated RBC % (0.0-0.3) % 0.0 Absolute Neutrophils (1.2-6.7) 10^3/uL 10.47 H Absolute Lymphocytes (1.2-3.4) 10^3/uL 1.04 L Absolute Monocytes (0.1-0.8) 10^3/uL 0.83 H Absolute Eosinophils (0.0-0.7) 10^3/uL 0.18 Absolute Basophils (0.0-0.2) 10^3/uL 0.11 PT (9.1-11.1) sec 10.4 INR (0.9-1.1) 1.0 APTT (20.6-30.2) sec 25.9 Sodium (136-145) mmol/L 142 Potassium (3.5-5.1) mmol/L 4.0 Chloride (98-107) mmol/L 106 Carbon Dioxide (21.0-32.0) mmol/L 26.8 Anion Gap (3-11) mmol/L 9.2 BUN (7-18) mg/dL 15 Creatinine (0.70-1.30) mg/dL 0.8 Est GFR (CKD-EPI 2020) (mL/min/1.73m2) 93.45 Glucose (74-106) mg/dL 110 H Calcium (8.5-10.1) mg/dL 9.6 Magnesium (1.8-2.4) mg/dL 2.2 Total Bilirubin (0.2-1.0) mg/dL 0.4 AST (15-37) U/L 21 ALT (16-63) U/L 35 Alkaline Phosphatase (46-116) U/L 169 H Total Protein (6.4-8.2) g/dL 7.0 Albumin (3.4-5.0) g/dL 3.7 Urine Color (Yellow) Yellow Urine Clarity (Clear) Clear Urine pH (5-8) 5.5 Ur Specific [place] (1.005-1.025) >= 1.030 H Urine Protein (Neg-Trace) mg/dL Negative Urine Ketones (Negative) mg/dL Trace H Urine Blood (Negative) Negative Urine Nitrite (Negative) Negative Urine Bilirubin (Negative) Negative Urine Urobilinogen (Up to 0.2) mg/dL 0.2 Ur Leukocyte Esterase (Negative) Negative Urine Glucose (Negative) mg/dL Negative Discharge Plan Disposition Patient Disposition: Transfer-Acute Inpatient Care Specific Acute Inpt Facility: [facility] Condition: Stable Discharge Details Clinical Impression: Closed comminuted intertrochanteric fracture of right femur Primary Care Provider: Cathie Sue V ED Provider: Manpreet Shaw Home Meds and New Rx's Prescriptions: No Action lorazepam 1 mg tablet 1 mg PO DAILY PRN magnesium 200 mg tablet 400 mg PO DAILY venlafaxine 150 mg capsule,extended release 24hr 150 mg PO DAILY diltiazem HCl [DILT-XR] 120 mg capsule,ext.rel 24h degradable 120 mg PO DAILY trazodone 50 mg tablet 150 mg PO HS cholecalciferol (vitamin D3) 25 mcg (1,000 unit) capsule 25 mcg PO DAILY vitamin E (dl, acetate) 180 mg (400 unit) capsule 180 mg PO DAILY bupropion HCl [Wellbutrin SR] 150 MG tablet extended release 12 hr 150 mg PO BID cetirizine [Zyrtec] 10 MG tablet 10 mg PO DAILY sertraline 50 MG tablet 50 mg PO BID simvastatin 40 MG tablet 40 mg PO HS fluticasone propionate 16 GM spray,suspension 2 spr IN DAILY nitroglycerin [Nitrostat] 0.4 MG tablet, sublingual 0.4 mg PO DIRECTED PRN Discharge Data Discharge Date/Time-TO BE ENTERED AT DEPARTURE: 11/24/24 21:04
== END 2024-11-24 21:04 | disposition short-term general hospital (02) ==
PROVIDERS: Registered Nurse Emergency; Emergency Provider Physician Assistant; PCP Family Medicine
DX: S72.144A Nondisplaced intertrochanteric fracture of right femur, initial encounter for closed fracture (principal); I10 Essential (primary) hypertension; E78.5 Hyperlipidemia, unspecified; I25.10 Atherosclerotic heart disease of native coronary artery without angina pectoris; F17.200 Nicotine dependence, unspecified, uncomplicated; Z96.82 Presence of neurostimulator; W11.XXXA Fall on and from ladder, initial encounter; Y93.89 Activity, other specified
CPT/HCPCS: 00123; 36415; 73552; 80053; 93005; 96374; 96375; 96376; 99285; 71045; 72170; 81003; 83735; 85025; 85610; 85730; 93010; J0131; J2270; J2405; J3010

== ENCOUNTER 2025-01-26 13:15 | Outpatient (CLI) | payer MEDICARE, BC, SELFPAY ==
--- NOTE | 2025-01-26 09:48 | DI.RAD_ITS ---
Exam(s) XR HIP RT COMPLETE AP PELVIS EXAM: XR HIP RT COMPLETE AP PELVIS CLINICAL HISTORY: S/P R HERMINIA. TECHNIQUE: 2D digital imaging was performed. Three views. COMPARISON: CR XR PELVIS AP from 11/24/2024 CR XR FEMUR RT from 11/24/2024 FINDINGS: BONES: There are fracture fragments medial to the lesser trochanter. No additional fractures are seen. No bony destructive lesion is seen. JOINTS: A right hip prosthesis has been placed since the previous exam. The alignment appears satisfactory. There are small bony fragments noted medial to the lesser trochanter. SI joints and pubic symphysis are unremarkable. The left hip joint space is maintained. There is mild acetabular spurring. Postsurgical changes are noted in the lower lumbar spine. SOFT TISSUE: Normal. IMPRESSION: Satisfactory alignment of right hip prosthesis. DATA REPOSITORY: RADIATION DOSE DELIVERED:
== END 2025-01-26 13:16 | disposition home or self-care (01) ==
LOC: DIORS 13:16
PROVIDERS: PCP Family Medicine; Referring Provider Family Medicine; Visit Provider Student in an Organized Health Care Education/Training Program
DX: Z47.1 Aftercare following joint replacement surgery (principal); Z96.641 Presence of right artificial hip joint
CPT/HCPCS: 99213; 73502

== ENCOUNTER → 2025-02-23 09:11 | Outpatient (BNVA) | payer MEDICARE, BC, SELFPAY | PROVIDERS: PCP Family Medicine; Referring Provider Family Medicine; Visit Provider Physician Assistant | DX: Z47.1 Aftercare following joint replacement surgery (principal); Z96.641 Presence of right artificial hip joint | CPT/HCPCS: 99024 ==

== ENCOUNTER 2025-04-17 12:25 | Outpatient (REF) | payer MEDICARE, BC, SELFPAY ==
[2025-04-17 16:59] LABS: HCT 52.1 % (40.0-50.0); HGB 17.0 g/dL (13.5-17.5); MCH 28.0 pg (27.0-33.0); MCHC 32.6 % (32.0-36.0); MCV 86 fL (80-95); MPV 8.7 fL (8.0-11.0); Platelet Count 343 10^3/uL (130-400); RBC 6.07 10^6/uL (4.36-5.78); RDW 14.0 % (11.8-14.1); RDW-SD 43.9 fL; WBC 9.19 10^3/uL (4.4-10.8)
[2025-04-17 17:15] LABS: ALT 33 U/L (10-49); AST 30 U/L (<34); Albumin 4.2 g/dL (3.2-5.0); Alkaline Phosphatase 205 U/L (46-116); Anion Gap 9.3 mmol/L (3-11); BUN 13 mg/dL (9-23); Bilirubin, Total 0.4 mg/dL (0.2-1.2); CO2 28.7 mmol/L (20.0-31.0); Calcium 9.6 mg/dL (8.3-10.6); Chloride 107 mmol/L (98-107); Cholesterol 193 mg/dL (<200); Glucose 92 mg/dL (74-106); HDL Cholesterol 64 mg/dL (>40); Potassium 4.8 mmol/L (3.5-5.1); Sodium 145 mmol/L (136-145); Total Protein 6.6 g/dL (5.7-8.2)
[2025-04-17 17:16] LABS: TSH (W/Ref FT4) 1.45 uIU/mL (0.55-4.78)
[2025-04-17 17:20] LABS: Hemoglobin A1C 5.6 % (<5.7)
[2025-04-20 09:58] LABS: PSA, Screening 1.6 ng/mL (<=6.5)
== END 2025-04-17 12:26 | disposition home or self-care (01) ==
LOC: NCHCN 12:25
PROVIDERS: PCP Family Medicine; Visit Provider Family Medicine
DX: E78.5 Hyperlipidemia, unspecified (principal); F41.9 Anxiety disorder, unspecified; N40.0 Benign prostatic hyperplasia without lower urinary tract symptoms; Z13.1 Encounter for screening for diabetes mellitus; I10 Essential (primary) hypertension; D72.829 Elevated white blood cell count, unspecified
CPT/HCPCS: 80053; 80061; 84153; 85027; 83036; 84443